=== PATIENT | female | born 1960 | race Caucasian/White ===

== ENCOUNTER 2019-02-25 07:59 | Outpatient (CLI) | payer MEDICAID, SELFPAY ==
--- NOTE | 2019-02-26 08:23 | ONC FU_ITS ---
Dr. Martinez follow up note Patient: Naima Michel Unit #: [id number]: [id number] Dicatated By: Kevyn Martinez M.D.Date of Visit:Feb 25, 2019 Onc Med Follow-up/Prog Note History of Present Illness: Mrs. Michel is a 58-year-old female recently diagnosed with right breast cancer. She underwent right lumpectomy with right axillary lymph node dissection on 11/14/2017 and final pathology report showed 4 cm invasive ductal carcinoma and 3 out of 13 lymph nodes positive for metastatic disease within no extranodal extension identified. As per patient, she has history of left breast biopsy done in 2001 and it was benign. She did not have any follow-up mammograms in the last many years until September 2017. She noticed a mass in her right breast and she got concern. On 09/12/2017 she underwent mammographic which showed at the 10:00 position there was a mass about 3.1 x 2.5 x 4.1 cm, with axillary lymphadenopathy. Mrs Michel then underwent ultrasound-guided biopsy of right breast mass which showed infiltrating adenocarcinoma. She also had right axillary lymph node biopsy also showed infiltrating adenocarcinoma. She subsequently underwent right breast lumpectomy with right axillary lymph node dissection as mentioned above. Oncotype DX score 40 e.g. high risk She denies any history of hormonal supplement. Ms. Michel was evaluated and treatment options were discussed. Given her high Oncotype DX score with tamoxifen alone five-year recurrence risk was 24 presents whereas with chemotherapy and tamoxifen the risk was 15%. He did offer her chemotherapy with Adriamycin Cytoxan every 3 weeks for 4 weeks then followed by weekly Taxol followed by postlumpectomy radiation therapy and then Arimidex for 5 years. Ms. Michel had an echocardiogram on 12/24/2017 which revealed ejection fraction of 57% and no wall motion abnormalities. She underwent venous access device placement with Dr. Arteaga on 01/09/2018. She did have a left subclavian Port-A-Cath placed. She began her first chemotherapy with Adriamycin and cyclophosphamide on 01/15/2018 And completed 4 cycles of chemotherapy with Adriamycin Cytoxan on 03/26/2018 and started on weekly Taxol ???12 on 04/10/2018. Her paclitaxel was changed to protein-bound paclitaxel (Abraxane) at week 4 due to steroid-induced hyperglycemia.Concluded her weekly taxane ???12 on 06/25/2018 Prescription was given on Arimidex 1 mg by mouth daily for 5 years on 07/11/2018 Prescription was called in on 07/11/2018 patient did not strip picker her prescription until seen back on 11/10/2018, at that time another prescription was called in and patient was informed take her adjuvant hormonal therapy with Arimidex daily for 5 years along with vitamin D and calcium supplement Patient came back to clinic on 01/12/2019 and said she could not get her Arimidex again because of insurance refused to cover the prescription. Reason unknown She was given prescription and asked her to get it filled from hospital pharmacy under [facility] program.Which was finally done and patient start taking Arimidex 1 mg by mouth daily on 01/12/2019 for 5 years s/p postlumpectomy radiation therapy Completed on 09/18/2018 Came for follow-up, denies any specific pain no nausea vomiting no fever no chills, could not get her Arimidex prescription filled because of insurance denied coverage, reason unknown. As per patient she has history of trauma to her right leg, in the past she slipped on a toy helicopter and injured her right leg and hip. Came for follow-up, denies any specific complaints, no nausea or vomiting, no fever or chills, no muscle skeleton pain or discomfort, and occasionally hot flashes otherwise tolerating Arimidex well Medications: Albuterol Sulfate 1 puff(s) (of 108 (90 base) mcg/act) Aerosol Powder, Breath Activated Inhalation PRN, Cetirizine HCl 1 Tablet (of 10 mg) Capsule Oral daily, ClonazePAM 1 Tablet (of 0.5 mg) Oral b.i.d., Desvenlafaxine ER 1 Tablet (of 50 mg) Tablet SR 24 HR Oral daily, Gabapentin 1 Tablet (of 600 mg) Oral t.i.d., HumuLIN R 3 - 11 Units (of 100 Units/mL) Injection q 4 hours PRN, Levemir FlexTouch 60 Units Subcutaneous at bedtime, Magnesium 1 Tablet (of 400 mg) Capsule Oral daily, Victoza 0.6 mg Subcutaneous daily Allergies: Tetracycline HCl Review of Systems: Review of Systems is not available for this patient. Vital Signs: Performed on Feb 25, 2019 08:11 Height - 69.00 in Weight - 182.8 lbs (LOW) BSA - 1.99 sq.m BMI - 27.00 Temperature - 97.8 F (LOW) Pulse - 100 /min Respiration - 24 /min BP - 141/75 mm(hg) (HIGH) O2 Sat - 98 % Pain - 0 Performance Status: 0 - Fully active, able to carry on all predisease activities without restrictions. (ECOG) Physical Examination: Respiratory - Lungs are clear to auscultation without rhonchi or wheezing, Cardiovascular - Regular rate and rhythm of heart without murmurs, gallops or rubs, Extremities - No visible deformities, no cyanosis, clubbing or edema. Pulses 4+ and equal bilaterally. Lab/Imaging: Test performed on Dec 08, 2018 10:37 WBC 7.0 10 3/uL RBC 5.00 10 6/uL HGB 14.3 g/dl HCT 41.9 % MCV 83.9 fl MCH 28.6 pg MCHC 34.1 g/dl RDW 14.7 % Platelet Count 354 10 3/cmm MPV 8.7 fl Neutrophils 5.0 10 3/uL Lymphocytes 1.2 10 3/uL Monocytes 0.6 10 3/uL Eosinophils 0.2 10 3/uL Basophils 0.1 10 3/uL Neutrophil % 70.7 % Lymphocyte % 16.9 % Monocyte % 8.2 % Eosinophil % 3.3 % Basophils % 0.9 % Impression: 1. infiltrating adenocarcinoma of right breast status post lumpectomy and right axillary lymph node dissection done on 11/14/2017, final pathology report showed tumor measures 4 cm, T2, 3 out of 13 positive lymph nodes , no extranodal extension N1a p T2, N1a ,Mx pIIB, Ki-67 35%, ER 95%, [place] 2%, both a strongly positive and HER-2/sarwat 2+ but negative by FISH amplification. Oncotype DX score checked on 12/09/2017 showed recurrence score 40 e.g. high risk History of diabetes mellitus Diabetic neuropathy Arthritis Depression/anxiety discussed with Ms Michel her Oncotype type score which was 40 and is high risk for recurrence e.g. and her case 5 years risk of recurrence with tamoxifen alone is 24% whereas with chemotherapy and tamoxifen is 15%. Based on that, recommended that she consider adjuvant chemotherapy followed by hormonal therapy and postlumpectomy radiation therapy: Adriamycin Cytoxan every 3 weeks ???4 followed by weekly Taxol ???12 followed by postlumpectomy radiation therapy and Arimidex for 5 years. Ms. Michel had an echocardiogram on 12/24/2017 which revealed ejection fraction of 57% and no wall motion abnormalities. She underwent venous access device placement with Dr. Arteaga on 01/09/2018. She did have a left subclavian Port-A-Cath placed. She began her first chemotherapy with Adriamycin and cyclophosphamide on 01/15/2018.Computed 4 cycles of chemotherapy with Adriamycin Cytoxan on 2018 , started on weekly Taxol ???12 on 04/10/2018 And concluded on 06/25/2018, started on Arimidex 1 mg by mouth daily for 5 years on 07/11/2018 Prescription for Arimidex was called in on 07/11/2018 but patient did not strip picker her prescription until her return visit on 11/10/2018, when new prescription was called in so her starting date her adjuvant hormonal therapy is 11/10/2018. She has tolerated it well overall with the exception of steroid induce hyperglycemia. We were able to get authorization to change her from Taxol to Abraxane as her glucose was running so high. Status post postlumpectomy radiation therapy, completed on 09/18/2018 Plan: Discussed with patient regarding her concerns and role of adjuvant therapy with hormonal therapy. Finally, patient has started taking Arimidex, now is affordable through [employer] program. And patient is tolerating well with minimal or no side effects e.g. occasionally hot flashes. We'll continue with same along with vitamin D and calcium supplement and then she will return to clinic in 3 months with CBC CMP. And continue with monthly port maintenance Signed By: Kevyn Martinez M.D. <<Signature on File>>
== END 2019-02-25 08:00 | disposition home or self-care (01) ==
LOC: ONCMED 08:00
PROVIDERS: Family Provider Family Medicine; PCP Family Medicine; Visit Provider Internal Medicine Hematology & Oncology
DX: C50.411 Malignant neoplasm of upper-outer quadrant of right female breast (principal); C77.3 Secondary and unspecified malignant neoplasm of axilla and upper limb lymph nodes; Z45.2 Encounter for adjustment and management of vascular access device; E11.42 Type 2 diabetes mellitus with diabetic polyneuropathy; M19.90 Unspecified osteoarthritis, unspecified site; F41.8 Other specified anxiety disorders; Z79.811 Long term (current) use of aromatase inhibitors; Z79.4 Long term (current) use of insulin; Z92.21 Personal history of antineoplastic chemotherapy; Z92.3 Personal history of irradiation
CPT/HCPCS: 96523; 99214

== ENCOUNTER 2019-03-22 20:28 | Emergency (ER) | payer MEDICAID, SELFPAY ==
[2019-03-22 20:55] VITALS: BP 170/92; PULSE 109; RESP 18; TEMP 36.7; O2SAT 98; BMI 26.9
[2019-03-22 22:16] VITALS: BP 171/108; PULSE 109; RESP 16; O2SAT 98
--- NOTE | 2019-03-22 22:17 | PC.NURSE ---
PATIENT STATES SHE WOKE UP YESTERDAY WITH A CRICK IN MY NECK BUT IT HAS NOT DONE AWAY. PATIENT STATES SHE CANNOT MORE HER NECK FROM SIDE TO SIDE OR UP OR DOWN. PATIENT STATES SHE ALSO HAS A HEADACHE. PATIENT IS RATING HER PAIN 9/10.
--- NOTE | 2019-03-22 22:20 | W.ED.NECK ---
HPI - Neck Pain/Injury General: Chief Complaint: Neck Pain/Injury Stated Complaint: neck pain Time Seen by Provider: 03/22/19 22:12 History of Present Illness: HPI Narrative: Patient is a 59-year-old female who awoke yesterday with a crick in her neck . States is right-sided. She denies any fever, amaurosis fugax, unilateral weakness, slurred speech or other difficulties. She denies any fall or injury. She states she had muscle spasms before. History of diabetes, breast cancer status post chemo and radiation therapy. Status post right lumpectomy, bilateral tubal ligation hysterectomy. Allergic to tetracycline. States severe pain with movement to the right side. MD complaint: neck pain Radiation: right lateral Severity: severe Quality: spasming Duration: constant Relieving factors: none Exacerbating factors: movement of neck Associated symptoms: Reports no associated symptoms; Denies headache(s) Review of Systems Const: Denies: fever Eyes: Denies: change in vision ENMT: Denies: dry mouth Card: Denies: edema Resp: Denies: shortness of breath GI: Denies: abdominal pain : Denies: flank pain, difficulty urinating or painful urination Musc: Reports: neck pain; Denies: extremity swelling or redness Skin/Breast: Denies: rash or skin swelling Neuro: Denies: headache or weakness in extremities Psych: Denies: anxiety Endo: Denies: excessive urination Rhett/Lymph: Denies: purpura All/Imm: Denies: hives PFSH ED PFSH: Statuses (acute, chronic, etc) shown below reflect problem list status as previously entered and may not be historically accurate Medical History (Updated 03/22/19 @ 22:25 by Fred Guerrero NP) Agoraphobia with panic disorder (Acute) Major depressive disorder, recurrent, moderate (Acute) Nicotine dependence, cigarettes, with other nicotine-induced disorders (Acute) Social History Smoking and tobacco status: current every day smoker Physical Exam Const: COMMON NORMALS: no apparent distress, oriented x3 and alert ORIENTATION/CONSCIOUSNESS: Yes oriented to person and Yes oriented to place HENMT: COMMON NORMALS: normocephalic HEAD & SCALP: normal to inspection and normocephalic Eye: COMMON NORMALS: PERRL, EOMs intact bilaterally and conjunctivae normal GENERAL EYE: normal appearance of both eyes CONJUNCTIVA: Yes conjunctivae normal PUPIL: Yes PERRL Neck/C-Spine: COMMON NORMALS: no lymphadenopathy, supple, no meningeal signs and no JVD GENERAL: Yes trachea midline and Yes tender (Right paracervical pain with palpation. Spasms noted. No midline cervical pain with exam.) Lymph: LYMPHATIC: no lymphadenopathy noted Chest: COMMONS NORMALS: inspection of chest normal Resp: COMMON NORMALS: normal respiratory effort, no retractions and clear to auscultation bilaterally EFFORT & INSPECTION: Yes able to speak in complete sentences AUSCULTATION: clear to auscultation bilaterally Cardio: COMMON NORMALS: no JVD, regular rate and regular rhythm RATE: regular rate RHYTHM: regular rhythm GI: INSPECTION: Yes normal to inspection AUSCULTATION: Yes normoactive bowel sounds : COMMON NORMALS: Yes no CVA tenderness BLADDER/KIDNEY EXAM: Yes no CVA tenderness Back/Pelvis: COMMON NORMALS: no CVA tenderness THORACIC SPINE/UPPER BACK: Yes normal to inspection LUMBAR SPINE/LOWER BACK: Yes normal to inspection Extremity: COMMON NORMALS: normal to inspection, full ROM and normal capillary refill GENERAL: Yes normal exam except as noted Neuro: COMMON NORMALS: oriented x3, CN's II-XII intact bilaterally, moves all extremities, no focal motor deficits and no sensory deficits noted SENSORIUM/ORIENTATION: Yes alert, Yes oriented to person and Yes oriented to place MENINGEAL SIGNS: Yes no meningeal signs SPEECH: speech normal GAIT: Yes normal gait Psych: COMMON NORMALS: mental status grossly normal, thought process normal, cooperative, affect normal and speech normal APPEARANCE: Yes grossly normal SPEECH: Yes normal speech THOUGHT PROCESS: normal thought process Skin: COMMON NORMALS: no rashes or lesions noted, no wounds and skin turgor normal GENERAL SKIN EXAM: no rashes or lesions noted, elasticity normal and turgor normal Course ED course: Patient with reproducible pain over the right trapezius muscle. Will provide Ativan, Toradol IM along with [place] p.o. Will provide muscle relaxants and NSAIDs for discharge. Patient instructed follow-up with primary care provider for ongoing evaluation. She has no fever. No meningeal signs. Stable for discharge after medical screening exam. Vital Signs: Vital signs: Vital Signs Temperature 98.0 F 03/22/19 20:55 Pulse Rate 109 H 03/22/19 22:16 Respiratory Rate 16 03/22/19 22:16 Blood Pressure 171/108 03/22/19 22:16 Pulse Oximetry 98 03/22/19 22:16 MDM - Neck Pain/Injury MDM Narrative: Medical decision making narrative: Patient has no meningeal signs. Instructed follow-up with primary care provider for ongoing evaluation of muscle skeletal pain. Discharge Plan Discharge Patient Disposition: Home, Self-Care Clinical Impression: Acute cervical myofascial strain Condition: Stable Prescriptions: New cyclobenzaprine 10 mg tablet 10 mg PO TID PRN (Reason: muscle spasm) Qty: 30 RF: 0 naproxen 500 mg tablet 500 mg PO BID PRN (Reason: pain) Qty: 20 RF: 0 No Action desvenlafaxine succinate [Pristiq] 100 mg tablet extended release 24 hr 100 mg PO DAILY Qty: 30 RF: 2 clonazepam [Klonopin] 0.5 mg tablet 0.5 mg PO TID PRN (Reason: anxiety) Qty: 75 RF: 2 Victoza 2-Lakhwinder 0.6 mg/0.1 mL (18 mg/3 mL) pen injector 0.6 mg SUBCUT DAILY RF: 0 Discharge Orders: Discharge Order (Routine); Ordered 03/22/19 Ordered By: Fred Guerrero Referrals: Willie Day MD [Family Provider] - Shelbie Davis MD [Primary Care Provider] - 03/27/19 Discharge Diet: Advance as tolerated Discharge Activity: Limit activity as instructed Patient Instructions: Muscle Spasm (ED) Activity Restrictions/Additional Instructions: Take medication as directed. Follow-up with primary care provider for ongoing evaluation. Coding Level of Care Code ED Director Of Training for Tila Marc
[2019-03-22] MEDS: HYDROcodone-acetaminophen 5-325 mg Tablet 1 TAB PO (22:44)
[2019-03-22] MEDS: ketorolac 30 mg/mL INJ IM (22:44)
[2019-03-22] MEDS: LORazepam 2 mg/mL INJ 1 mL IM (22:44)
[2019-03-22 22:49] VITALS: BP 143/74; PULSE 106; RESP 17; O2SAT 96
[2019-03-22 23:44] VITALS: BP 158/87; PULSE 110; RESP 16; TEMP 37; O2SAT 94
== END 2019-03-22 23:45 | disposition home or self-care (01) ==
PROVIDERS: Emergency Provider Nurse Practitioner; Family Provider Family Medicine; PCP Family Medicine
DX: S16.1XXA Strain of muscle, fascia and tendon at neck level, initial encounter (principal); X58.XXXA Exposure to other specified factors, initial encounter; F17.210 Nicotine dependence, cigarettes, uncomplicated
CPT/HCPCS: 96372; 99281; 99283; J1885; J2060

== ENCOUNTER 2019-03-27 08:02 | Outpatient (CLI) | payer MEDICAID, SELFPAY | END 2019-03-27 08:03 | disposition home or self-care (01) | LOC: ONCMED 08:04 | PROVIDERS: Family Provider Family Medicine; PCP Family Medicine; Visit Provider Internal Medicine Hematology & Oncology | DX: Z45.2 Encounter for adjustment and management of vascular access device (principal) | CPT/HCPCS: 96523 ==

== ENCOUNTER 2019-04-24 07:51 | Outpatient (CLI) | payer MEDICAID, SELFPAY | END 2019-04-24 07:52 | disposition home or self-care (01) | LOC: ONCMED 07:53 | PROVIDERS: Family Provider Family Medicine; PCP Nurse Practitioner Family; Visit Provider Internal Medicine Hematology & Oncology | DX: Z45.2 Encounter for adjustment and management of vascular access device (principal) | CPT/HCPCS: 96523 ==

== ENCOUNTER 2019-05-29 07:48 | Outpatient (CLI) | payer MEDICAID, SELFPAY ==
--- NOTE | 2019-05-29 08:53 | ONC FU_ITS ---
Dr. Martinez follow up note Patient: Naima Michel Unit #: [id number]: 1960 Dicatated By: Kevyn Martinez M.D.Date of Visit:May 29, 2019 Onc Med Follow-up/Prog Note History of Present Illness: Mrs. Michel is a 59-year-old female recently diagnosed with right breast cancer. She underwent right lumpectomy with right axillary lymph node dissection on 11/14/2017 and final pathology report showed 4 cm invasive ductal carcinoma and 3 out of 13 lymph nodes positive for metastatic disease within no extranodal extension identified. As per patient, she has history of left breast biopsy done in 2001 and it was benign. She did not have any follow-up mammograms in the last many years until September 2017. She noticed a mass in her right breast and she got concern. On 09/12/2017 she underwent mammographic which showed at the 10:00 position there was a mass about 3.1 x 2.5 x 4.1 cm, with axillary lymphadenopathy. Mrs Michel then underwent ultrasound-guided biopsy of right breast mass which showed infiltrating adenocarcinoma. She also had right axillary lymph node biopsy also showed infiltrating adenocarcinoma. She subsequently underwent right breast lumpectomy with right axillary lymph node dissection as mentioned above. Oncotype DX score 40 e.g. high risk She denies any history of hormonal supplement. Ms. Michel was evaluated and treatment options were discussed. Given her high Oncotype DX score with tamoxifen alone five-year recurrence risk was 24 presents whereas with chemotherapy and tamoxifen the risk was 15%. He did offer her chemotherapy with Adriamycin Cytoxan every 3 weeks for 4 weeks then followed by weekly Taxol followed by postlumpectomy radiation therapy and then Arimidex for 5 years. Ms. Michel had an echocardiogram on 12/24/2017 which revealed ejection fraction of 57% and no wall motion abnormalities. She underwent venous access device placement with Dr. Arteaga on 01/09/2018. She did have a left subclavian Port-A-Cath placed. She began her first chemotherapy with Adriamycin and cyclophosphamide on 01/15/2018 And completed 4 cycles of chemotherapy with Adriamycin Cytoxan on 03/26/2018 and started on weekly Taxol ???12 on 04/10/2018. Her paclitaxel was changed to protein-bound paclitaxel (Abraxane) at week 4 due to steroid-induced hyperglycemia.Concluded her weekly taxane ???12 on 06/25/2018 Prescription was given on Arimidex 1 mg by mouth daily for 5 years on 07/11/2018 Prescription was called in on 07/11/2018 patient did not pick up driver her prescription until seen back on 11/10/2018, at that time another prescription was called in and patient was informed take her adjuvant hormonal therapy with Arimidex daily for 5 years along with vitamin D and calcium supplement Patient came back to clinic on 01/12/2019 and said she could not get her Arimidex again because of insurance refused to cover the prescription. Reason unknown She was given prescription and asked her to get it filled from hospital pharmacy under [employer] program.Which was finally done and patient start taking Arimidex 1 mg by mouth daily on 01/12/2019 for 5 years s/p postlumpectomy radiation therapy Completed on 09/18/2018 Came for follow-up, denies any specific pain no nausea vomiting no fever no chills, could not get her Arimidex prescription filled because of insurance denied coverage, reason unknown. As per patient she has history of trauma to her right leg, in the past she slipped on a toy helicopter and injured her right leg and hip. Came for follow-up, denies any specific complaints, no nausea vomiting no fever no chills no diarrhea or constipation, no jaundice. Occasional hot flashes otherwise tolerating Arimidex well Medications: Albuterol Sulfate 1 puff(s) (of 108 (90 base) mcg/act) Aerosol Powder, Breath Activated Inhalation PRN, Cetirizine HCl 1 Tablet (of 10 mg) Capsule Oral daily, ClonazePAM 1 Tablet (of 0.5 mg) Oral b.i.d., Desvenlafaxine ER 1 Tablet (of 50 mg) Tablet SR 24 HR Oral daily, Gabapentin 1 Tablet (of 600 mg) Oral t.i.d., HumuLIN R 3 - 11 Units (of 100 Units/mL) Injection q 4 hours PRN, Levemir FlexTouch 60 Units Subcutaneous at bedtime, Magnesium 1 Tablet (of 400 mg) Capsule Oral daily, Victoza 0.6 mg Subcutaneous daily Allergies: Tetracycline HCl Review of Systems: Constitutional - No fevers, chills, night sweats, excessive fatigue or weight loss, ENMT - No sinus congestion/drainage. No cough, Hematologic/Lymphatic - No easy bruising or bleeding, Respiratory - No dyspnea on exertion, chest pain, cough or hemoptysis, Cardiovascular - No anginal chest pain, palpitations, Gastrointestinal - No nausea or vomiting, no diarrhea or constipation. No blood or black stools, Genitourinary (F) - No hematuria, dysuria, increased frequency, urgency, hesitancy or incontinence, Musculoskeletal - No joint pain, swelling or redness. No decreased range of motion, Integumentary - No chronic rashes, inflammation, ulcerations or skin changes, Neurologic - No headache, blurred vision, and no areas of focal weakness or numbness. Normal gait. No sensory problems, Psychiatric - No insomnia, depression, or anxiety. Vital Signs: Performed on May 29, 2019 08:20 Height - 69.00 in Weight - 187.8 lbs (HIGH) BSA - 2.01 sq.m BMI - 27.73 Temperature - 97.2 F (LOW) Pulse - 98 /min Respiration - 17 /min BP - 141/67 mm(hg) (HIGH) O2 Sat - 97 % Pain - 0 Performance Status: 0 - Fully active, able to carry on all predisease activities without restrictions. (ECOG) Physical Examination: Respiratory - Lungs are clear and no wheezing, Cardiovascular - Regular rate and rhythm, Extremities - no visible edema or rash. Lab/Imaging: Test performed on Dec 08, 2018 10:37 WBC 7.0 10 3/uL RBC 5.00 10 6/uL HGB 14.3 g/dl HCT 41.9 % MCV 83.9 fl MCH 28.6 pg MCHC 34.1 g/dl RDW 14.7 % Platelet Count 354 10 3/cmm MPV 8.7 fl Neutrophils 5.0 10 3/uL Lymphocytes 1.2 10 3/uL Monocytes 0.6 10 3/uL Eosinophils 0.2 10 3/uL Basophils 0.1 10 3/uL Neutrophil % 70.7 % Lymphocyte % 16.9 % Monocyte % 8.2 % Eosinophil % 3.3 % Basophils % 0.9 % Impression: 1. infiltrating adenocarcinoma of right breast status post lumpectomy and right axillary lymph node dissection done on 11/14/2017, final pathology report showed tumor measures 4 cm, T2, 3 out of 13 positive lymph nodes , no extranodal extension N1a p T2, N1a ,Mx pIIB, Ki-67 35%, ER 95%, [place] 2%, both a strongly positive and HER-2/sarwat 2+ but negative by FISH amplification. Oncotype DX score checked on 12/09/2017 showed recurrence score 40 e.g. high risk History of diabetes mellitus Diabetic neuropathy Arthritis Depression/anxiety discussed with Ms Michel her Oncotype type score which was 40 and is high risk for recurrence e.g. and her case 5 years risk of recurrence with tamoxifen alone is 24% whereas with chemotherapy and tamoxifen is 15%. Based on that, recommended that she consider adjuvant chemotherapy followed by hormonal therapy and postlumpectomy radiation therapy: Adriamycin Cytoxan every 3 weeks ???4 followed by weekly Taxol ???12 followed by postlumpectomy radiation therapy and Arimidex for 5 years. Ms. Michel had an echocardiogram on 12/24/2017 which revealed ejection fraction of 57% and no wall motion abnormalities. She underwent venous access device placement with Dr. Arteaga on 01/09/2018. She did have a left subclavian Port-A-Cath placed. She began her first chemotherapy with Adriamycin and cyclophosphamide on 01/15/2018.Computed 4 cycles of chemotherapy with Adriamycin Cytoxan on 2018 , started on weekly Taxol ???12 on 04/10/2018 And concluded on 06/25/2018, started on Arimidex 1 mg by mouth daily for 5 years on 07/11/2018 Prescription for Arimidex was called in on 07/11/2018 but patient did not pick up driver her prescription until her return visit on 11/10/2018, when new prescription was called in so her starting date her adjuvant hormonal therapy is 11/10/2018. She has tolerated it well overall with the exception of steroid induce hyperglycemia. We were able to get authorization to change her from Taxol to Abraxane as her glucose was running so high. Status post postlumpectomy radiation therapy, completed on 09/18/2018 Plan: Discussed with patient regarding her questions and concern, patient has no signs symptoms suggestive of recurrence of disease. Tolerating Arimidex well along with vitamin D and calcium supplement. We'll continue with same a prescription was refilled and then she will return to clinic in 3 months with CBC CMP Signed By: Kevyn Martinez M.D. <<Signature on File>>
== END 2019-05-29 07:49 | disposition home or self-care (01) ==
LOC: ONCMED 07:48
PROVIDERS: PCP Nurse Practitioner Family; Visit Provider Internal Medicine Hematology & Oncology
DX: C50.411 Malignant neoplasm of upper-outer quadrant of right female breast (principal); C77.3 Secondary and unspecified malignant neoplasm of axilla and upper limb lymph nodes; Z45.2 Encounter for adjustment and management of vascular access device; E11.42 Type 2 diabetes mellitus with diabetic polyneuropathy; M19.90 Unspecified osteoarthritis, unspecified site; F41.8 Other specified anxiety disorders; Z17.0 Estrogen receptor positive status [ER+]; Z79.811 Long term (current) use of aromatase inhibitors; Z79.899 Other long term (current) drug therapy; Z79.4 Long term (current) use of insulin; Z92.21 Personal history of antineoplastic chemotherapy; Z92.3 Personal history of irradiation
CPT/HCPCS: 96523; 99214

== ENCOUNTER 2019-06-25 14:08 | Outpatient (CLI) | payer MEDICAID, SELFPAY | END 2019-06-25 14:09 | disposition home or self-care (01) | LOC: ONCMED 14:10 | PROVIDERS: PCP Nurse Practitioner Family; Visit Provider Internal Medicine Hematology & Oncology | DX: Z45.2 Encounter for adjustment and management of vascular access device (principal); C50.411 Malignant neoplasm of upper-outer quadrant of right female breast; C77.3 Secondary and unspecified malignant neoplasm of axilla and upper limb lymph nodes | CPT/HCPCS: 96523 ==

== ENCOUNTER 2019-07-23 14:58 | Outpatient (CLI) | payer MEDICAID, SELFPAY | END 2019-07-23 14:59 | disposition home or self-care (01) | PROVIDERS: PCP Nurse Practitioner Family; Visit Provider Nurse Practitioner | DX: Z45.2 Encounter for adjustment and management of vascular access device (principal); C50.411 Malignant neoplasm of upper-outer quadrant of right female breast; C77.3 Secondary and unspecified malignant neoplasm of axilla and upper limb lymph nodes | CPT/HCPCS: 96523 ==

== ENCOUNTER 2019-08-20 12:52 | Outpatient (CLI) | payer MEDICAID, SELFPAY ==
[2019-08-20] MEDS: alteplase 1 mg/mL SDV 2 mL 2 MG IV ×2 (13:20→14:20)
[2019-08-20 13:37] LABS: Basophils % 0.5 %; Eosinophils # 0.1 10^3/uL (0.0-0.8); Eosinophils % 1.9 %; Hematocrit 42.5 % (37.0-47.0); Hemoglobin 14.1 g/dL (11.5-15.3); Lymphocytes # 1.2 10^3/uL (0.8-4.8); Lymphocytes % 16.3 %; Mean Corpuscular HGB Conc 33.2 g/dL (30.0-36.0); Mean Corpuscular Volume 87.4 fL (81-99); Mean Platelet Volume 10.4 fL (7.4-10.4); Monocytes # 0.4 10^3/uL (0.2-0.9); Monocytes % 5.8 %; Neutrophils # 5.59 10^3/uL (1.8-7.7); Neutrophils % 75.2 %; Nucleated Red Blood Cells % 0 %; Platelet Count 362 10^3/cmm (130-400); Red Blood Count 4.86 10^6/uL (4.1-5.3); Red Cell Distribution Width 12.9 % (12.1-15.1); White Blood Count 7.4 10^3/uL (4.0-10.0)
[2019-08-20 14:33] LABS: Alanine Aminotransferase 9 U/L (0-33); Alkaline Phosphatase 126 IU/L (35-105); Anion Gap 15.7 (5-19); Aspartate Amino Transferase 12 U/L (0-32); Blood Urea Nitrogen 9 mg/dL (6-20); Calcium 9.3 mg/dL (8.5-10.5); Carbon Dioxide 23 mmol/L (22-29); Chloride 98 mmol/L (98-107); Globulin 3.4 g/dL (1.3-4.6); Glomerular Filtration Rate 102.3 mL/min (90-130); Glucose 339 mg/dL (65-115); Osmolality Calculated 283 mOsm/kg (285-295); Potassium 4.7 mmol/L (3.5-5.1); Sodium 132 mmol/L (136-145); Total Bilirubin 0.4 mg/dL (0.15-1.2); Total Protein 7.4 g/dL (6.6-8.7)
--- NOTE | 2019-08-20 14:52 | ONC FU_ITS ---
Dr. Martinez follow up note Patient: Naima Michel Unit #: [id number]: [id number] Dicatated By: Kevyn Martinez M.D.Date of Visit:Aug 20, 2019 Onc Med Follow-up/Prog Note History of Present Illness: Mrs. Michel is a 59-year-old female recently diagnosed with right breast cancer. She underwent right lumpectomy with right axillary lymph node dissection on 11/14/2017 and final pathology report showed 4 cm invasive ductal carcinoma and 3 out of 13 lymph nodes positive for metastatic disease within no extranodal extension identified. As per patient, she has history of left breast biopsy done in 2001 and it was benign. She did not have any follow-up mammograms in the last many years until September 2017. She noticed a mass in her right breast and she got concern. On 09/12/2017 she underwent mammographic which showed at the 10:00 position there was a mass about 3.1 x 2.5 x 4.1 cm, with axillary lymphadenopathy. Mrs Michel then underwent ultrasound-guided biopsy of right breast mass which showed infiltrating adenocarcinoma. She also had right axillary lymph node biopsy also showed infiltrating adenocarcinoma. She subsequently underwent right breast lumpectomy with right axillary lymph node dissection as mentioned above. Oncotype DX score 40 e.g. high risk She denies any history of hormonal supplement. Ms. Michel was evaluated and treatment options were discussed. Given her high Oncotype DX score with tamoxifen alone five-year recurrence risk was 24 presents whereas with chemotherapy and tamoxifen the risk was 15%. He did offer her chemotherapy with Adriamycin Cytoxan every 3 weeks for 4 weeks then followed by weekly Taxol followed by postlumpectomy radiation therapy and then Arimidex for 5 years. Ms. Michel had an echocardiogram on 12/24/2017 which revealed ejection fraction of 57% and no wall motion abnormalities. She underwent venous access device placement with Dr. Arteaga on 01/09/2018. She did have a left subclavian Port-A-Cath placed. She began her first chemotherapy with Adriamycin and cyclophosphamide on 01/15/2018 And completed 4 cycles of chemotherapy with Adriamycin Cytoxan on 03/26/2018 and started on weekly Taxol ???12 on 04/10/2018. Her paclitaxel was changed to protein-bound paclitaxel (Abraxane) at week 4 due to steroid-induced hyperglycemia.Concluded her weekly taxane ???12 on 06/25/2018 Prescription was given on Arimidex 1 mg by mouth daily for 5 years on 07/11/2018 Prescription was called in on 07/11/2018 patient did not bulk picker her prescription until seen back on 11/10/2018, at that time another prescription was called in and patient was informed take her adjuvant hormonal therapy with Arimidex daily for 5 years along with vitamin D and calcium supplement Patient came back to clinic on 01/12/2019 and said she could not get her Arimidex again because of insurance refused to cover the prescription. Reason unknown She was given prescription and asked her to get it filled from hospital pharmacy under 340B program.Which was finally done and patient start taking Arimidex 1 mg by mouth daily on 01/12/2019 for 5 years s/p postlumpectomy radiation therapy Completed on 09/18/2018 Came for follow-up, denies any specific pain no nausea vomiting no fever no chills, could not get her Arimidex prescription filled because of insurance denied coverage, reason unknown. As per patient she has history of trauma to her right leg, in the past she slipped on a toy helicopter and injured her right leg and hip. Came for follow-up, denies any specific complaints, no fever chills, no nausea or vomiting, no diarrhea or constipation, no new bony pains, tolerating Arimidex/vitamin D/calcium well Medications: Albuterol Sulfate 1 puff(s) (of 108 (90 base) mcg/act) Aerosol Powder, Breath Activated Inhalation PRN, Cetirizine HCl 1 Tablet (of 10 mg) Capsule Oral daily, ClonazePAM 1 Tablet (of 0.5 mg) Oral b.i.d., Desvenlafaxine ER 1 Tablet (of 50 mg) Tablet SR 24 HR Oral daily, Gabapentin 1 Tablet (of 600 mg) Oral t.i.d., HumuLIN R 3 - 11 Units (of 100 Units/mL) Injection q 4 hours PRN, Levemir FlexTouch 60 Units Subcutaneous at bedtime, Magnesium 1 Tablet (of 400 mg) Capsule Oral daily, Victoza 0.6 mg Subcutaneous daily Allergies: Tetracycline HCl Review of Systems: Constitutional - No fevers, chills, night sweats, excessive fatigue or weight loss, ENMT - No sinus congestion/drainage. No cough, Hematologic/Lymphatic - No easy bruising or bleeding, Respiratory - No dyspnea on exertion, chest pain, cough or hemoptysis, Cardiovascular - No anginal chest pain, palpitations, Gastrointestinal - No nausea or vomiting, no diarrhea or constipation. No blood or black stools, Genitourinary (F) - No hematuria, dysuria, increased frequency, urgency, hesitancy or incontinence, Musculoskeletal - No joint pain, swelling or redness. No decreased range of motion, Integumentary - No chronic rashes, inflammation, ulcerations or skin changes, Neurologic - No headache, blurred vision, and no areas of focal weakness or numbness. Normal gait. No sensory problems, Psychiatric - No insomnia, depression, or anxiety. Vital Signs: Performed on Aug 20, 2019 14:38 Height - 69.00 in Weight - 188.6 lbs (HIGH) BSA - 2.01 sq.m BMI - 27.85 Temperature - 98.3 F (LOW) Pulse - 95 /min Respiration - 20 /min BP - 125/69 mm(hg) O2 Sat - 98 % Pain - 0 Performance Status: 0 - Fully active, able to carry on all predisease activities without restrictions. (ECOG) Physical Examination: Respiratory - Lungs are clear, Cardiovascular - Regular rate and rhythm of heart, Gastrointestinal - Soft, bowel sounds present, Extremities - No visible edema. Lab/Imaging: Most recent lab results are not available for this patient. Impression: 1. infiltrating adenocarcinoma of right breast status post lumpectomy and right axillary lymph node dissection done on 11/14/2017, final pathology report showed tumor measures 4 cm, T2, 3 out of 13 positive lymph nodes , no extranodal extension N1a p T2, N1a ,Mx pIIB, Ki-67 35%, ER 95%, [place] 2%, both a strongly positive and HER-2/sarwat 2+ but negative by FISH amplification. Oncotype DX score checked on 12/09/2017 showed recurrence score 40 e.g. high risk History of diabetes mellitus Diabetic neuropathy Arthritis Depression/anxiety discussed with Ms Michel her Oncotype type score which was 40 and is high risk for recurrence e.g. and her case 5 years risk of recurrence with tamoxifen alone is 24% whereas with chemotherapy and tamoxifen is 15%. Based on that, recommended that she consider adjuvant chemotherapy followed by hormonal therapy and postlumpectomy radiation therapy: Adriamycin Cytoxan every 3 weeks ???4 followed by weekly Taxol ???12 followed by postlumpectomy radiation therapy and Arimidex for 5 years. Ms. Michel had an echocardiogram on 12/24/2017 which revealed ejection fraction of 57% and no wall motion abnormalities. She underwent venous access device placement with Dr. Arteaga on 01/09/2018. She did have a left subclavian Port-A-Cath placed. She began her first chemotherapy with Adriamycin and cyclophosphamide on 01/15/2018.Computed 4 cycles of chemotherapy with Adriamycin Cytoxan on 2018 , started on weekly Taxol ???12 on 04/10/2018 And concluded on 06/25/2018, started on Arimidex 1 mg by mouth daily for 5 years on 07/11/2018 Prescription for Arimidex was called in on 07/11/2018 but patient did not bulk picker her prescription until her return visit on 11/10/2018, when new prescription was called in so her starting date her adjuvant hormonal therapy is 11/10/2018. She has tolerated it well overall with the exception of steroid induce hyperglycemia. We were able to get authorization to change her from Taxol to Abraxane as her glucose was running so high. Status post postlumpectomy radiation therapy, completed on 09/18/2018 Plan: Discussed with patient regarding her labs white blood count 7.4 hemoglobin 14.1 crit 42.5 platelets 362,000 CMP within normal limit except glucose 339,000 Clinically, patient is doing well with no signs symptom suggestive of recurrence of disease, tolerating Arimidex/vitamin D and calcium well but with expected side effects. We will continue with same. As far as hyperglycemia is concerned, patient said her primary care physician is monitoring and adjusting her medications. Patient was advised to watch her diet and follow PMDs instructions properly. Return to clinic in 4 months with CBC CMP and follow-up mammogram in the meantime continue with monthly port maintenance Signed By: Kevyn Martinez M.D. <<Signature on File>>
== END 2019-08-20 12:53 | disposition home or self-care (01) ==
LOC: ONCMED 12:55
PROVIDERS: PCP Nurse Practitioner Family; Visit Provider Internal Medicine Hematology & Oncology
DX: C50.411 Malignant neoplasm of upper-outer quadrant of right female breast (principal); C77.3 Secondary and unspecified malignant neoplasm of axilla and upper limb lymph nodes; E11.65 Type 2 diabetes mellitus with hyperglycemia; Z17.0 Estrogen receptor positive status [ER+]; E11.42 Type 2 diabetes mellitus with diabetic polyneuropathy; F41.8 Other specified anxiety disorders; T82.594A Other mechanical complication of infusion catheter, initial encounter; Y74.1 Therapeutic (nonsurgical) and rehabilitative general hospital and personal-use devices associated with adverse incidents; M19.90 Unspecified osteoarthritis, unspecified site; Z79.811 Long term (current) use of aromatase inhibitors; Z92.3 Personal history of irradiation; Z79.4 Long term (current) use of insulin; Z92.21 Personal history of antineoplastic chemotherapy; Z98.890 Other specified postprocedural states
CPT/HCPCS: 36415; 36593; 80053; 85025; 96374; 96376; 99214; J2997

== ENCOUNTER 2019-09-18 07:30 | Outpatient (CLI) | payer MEDICAID, SELFPAY | END 2019-09-18 07:31 | disposition home or self-care (01) | LOC: ONCMED 07:31 | PROVIDERS: PCP Nurse Practitioner Family; Visit Provider Internal Medicine Hematology & Oncology | DX: Z45.2 Encounter for adjustment and management of vascular access device (principal) | CPT/HCPCS: 96523 ==

== ENCOUNTER 2019-10-21 07:54 | Outpatient (CLI) | payer MEDICAID, SELFPAY | END 2019-10-21 07:55 | disposition home or self-care (01) | LOC: ONCMED 07:56 | PROVIDERS: PCP Nurse Practitioner Family; Visit Provider Internal Medicine Hematology & Oncology | DX: Z45.2 Encounter for adjustment and management of vascular access device (principal) | CPT/HCPCS: 96523 ==

== ENCOUNTER 2019-11-20 07:52 | Outpatient (CLI) | payer MEDICAID, SELFPAY | END 2019-11-20 07:53 | disposition home or self-care (01) | LOC: ONCMED 07:53 | PROVIDERS: PCP Nurse Practitioner Family; Visit Provider Internal Medicine Hematology & Oncology | DX: Z45.2 Encounter for adjustment and management of vascular access device (principal) | CPT/HCPCS: 96523 ==

== ENCOUNTER 2019-12-21 10:04 | Outpatient (CLI) | payer MEDICAID, SELFPAY ==
--- NOTE | 2019-12-21 10:10 | MM_ITS ---
WS: [id number] Bilateral diagnostic digital mammogram, 12/21/2019 Clinical Data: HX OF BREAST CA Comparison: 09/12/2017. Findings: Right breast is smaller with upper outer quadrant scarring as a result of therapy. The right breast s kin is thickened. The left breast shows fibroglandular tissue. No spiculated masses or clustered calc ifications are seen on the left. MM/[id number] Impression: 1. Post therapy changes of the right breast but no evidence of recurrent tumor. 2. Negative left breast. 3. Recommend annual mammograms. BIRADS: 2-Benign FOLLOW UP: 1 Year Follow-up The [employer] dump grounds checker was used.
== END 2019-12-21 10:05 | disposition home or self-care (01) ==
LOC: ONCMED 10:07
PROVIDERS: PCP Nurse Practitioner Family; Visit Provider Internal Medicine Hematology & Oncology
DX: Z85.3 Personal history of malignant neoplasm of breast (principal)
CPT/HCPCS: 77066

== ENCOUNTER 2019-12-25 05:47 | Outpatient (CLI) | payer MEDICAID, SELFPAY ==
[2019-12-25 08:42] LABS: Basophils # 0.1 10^3/uL (0.0-0.1); Basophils % 0.7 %; Eosinophils # 0.2 10^3/uL (0.0-0.8); Eosinophils % 2.6 %; Hematocrit 44.3 % (37.0-47.0); Hemoglobin 14.4 g/dL (11.5-15.3); Lymphocytes # 1.6 10^3/uL (0.8-4.8); Lymphocytes % 19.8 %; Mean Corpuscular HGB Conc 32.5 g/dL (30.0-36.0); Mean Corpuscular Hemoglobin 29.3 pg (28.0-34.0); Mean Platelet Volume 10.6 fL (7.4-10.4); Monocytes # 0.6 10^3/uL (0.2-0.9); Monocytes % 7.5 %; Neutrophils # 5.53 10^3/uL (1.8-7.7); Nucleated Red Blood Cells % 0 %; Platelet Count 381 10^3/cmm (130-400); Red Blood Count 4.92 10^6/uL (4.1-5.3); Red Cell Distribution Width 12.2 % (12.1-15.1)
[2019-12-25 09:03] LABS: Alanine Aminotransferase 9 U/L (0-33); Albumin Level 3.9 g/dL (3.5-5.2); Alkaline Phosphatase 145 IU/L (35-105); Anion Gap 14.6 (5-19); Aspartate Amino Transferase 10 U/L (0-32); Blood Urea Nitrogen 15 mg/dL (6-20); Calcium 9.4 mg/dL (8.5-10.5); Carbon Dioxide 26 mmol/L (22-29); Chloride 97 mmol/L (98-107); Globulin 3.3 g/dL (1.3-4.6); Glomerular Filtration Rate 126.3 mL/min (90-130); Glucose 383 mg/dL (65-115); Osmolality Calculated 293 mOsm/kg (285-295); Potassium 4.6 mmol/L (3.5-5.1); Sodium 133 mmol/L (136-145); Total Bilirubin 0.2 mg/dL (0.15-1.2); Total Protein 7.2 g/dL (6.6-8.7)
--- NOTE | 2019-12-25 10:06 | ONC FU_ITS ---
Dr. Martinez follow up note Patient: Naima Michel Unit #: [id number]: 1960 Dicatated By: Kevyn Martinez M.D.Date of Visit:Dec 25, 2019 Onc Med Follow-up/Prog Note History of Present Illness: Mrs. Michel is a 59-year-old female recently diagnosed with right breast cancer. She underwent right lumpectomy with right axillary lymph node dissection on 11/14/2017 and final pathology report showed 4 cm invasive ductal carcinoma and 3 out of 13 lymph nodes positive for metastatic disease within no extranodal extension identified. As per patient, she has history of left breast biopsy done in 2001 and it was benign. She did not have any follow-up mammograms in the last many years until September 2017. She noticed a mass in her right breast and she got concern. On 09/12/2017 she underwent mammographic which showed at the 10:00 position there was a mass about 3.1 x 2.5 x 4.1 cm, with axillary lymphadenopathy. Mrs Michel then underwent ultrasound-guided biopsy of right breast mass which showed infiltrating adenocarcinoma. She also had right axillary lymph node biopsy also showed infiltrating adenocarcinoma. She subsequently underwent right breast lumpectomy with right axillary lymph node dissection as mentioned above. Oncotype DX score 40 e.g. high risk She denies any history of hormonal supplement. Ms. Michel was evaluated and treatment options were discussed. Given her high Oncotype DX score with tamoxifen alone five-year recurrence risk was 24 presents whereas with chemotherapy and tamoxifen the risk was 15%. He did offer her chemotherapy with Adriamycin Cytoxan every 3 weeks for 4 weeks then followed by weekly Taxol followed by postlumpectomy radiation therapy and then Arimidex for 5 years. Ms. Michel had an echocardiogram on 12/24/2017 which revealed ejection fraction of 57% and no wall motion abnormalities. She underwent venous access device placement with Dr. Arteaga on 01/09/2018. She did have a left subclavian Port-A-Cath placed. She began her first chemotherapy with Adriamycin and cyclophosphamide on 01/15/2018 And completed 4 cycles of chemotherapy with Adriamycin Cytoxan on 03/26/2018 and started on weekly Taxol ???12 on 04/10/2018. Her paclitaxel was changed to protein-bound paclitaxel (Abraxane) at week 4 due to steroid-induced hyperglycemia.Concluded her weekly taxane ???12 on 06/25/2018 Prescription was given on Arimidex 1 mg by mouth daily for 5 years on 07/11/2018 Prescription was called in on 07/11/2018 patient did not pickers material handlers her prescription until seen back on 11/10/2018, at that time another prescription was called in and patient was informed take her adjuvant hormonal therapy with Arimidex daily for 5 years along with vitamin D and calcium supplement Patient came back to clinic on 01/12/2019 and said she could not get her Arimidex again because of insurance refused to cover the prescription. Reason unknown She was given prescription and asked her to get it filled from hospital pharmacy under [facility]B program.Which was finally done and patient start taking Arimidex 1 mg by mouth daily on 01/12/2019 for 5 years s/p postlumpectomy radiation therapy Completed on 09/18/2018 . tolerating Arimidex/vitamin D/calcium well Follow-up mammogram done on December 21, 2019 showed post therapy changes in the right breast but no evidence of recurrent tumor, negative left breast Came for follow-up, denies any specific complaints, no fever chills, no nausea or vomiting, no diarrhea constipation, occasional hot flashes, trying to quit smoking as per patient she smoked about 2 and half cigarettes in the last 2 weeks. Otherwise tolerating Arimidex/vitamin D/calcium well Medications: Albuterol Sulfate 1 puff(s) (of 108 (90 base) mcg/act) Aerosol Powder, Breath Activated Inhalation PRN, Cetirizine HCl 1 Tablet (of 10 mg) Capsule Oral daily, ClonazePAM 1 Tablet (of 0.5 mg) Oral b.i.d., Desvenlafaxine ER 1 Tablet (of 50 mg) Tablet SR 24 HR Oral daily, Gabapentin 1 Tablet (of 600 mg) Oral t.i.d., HumuLIN R 3 - 11 Units (of 100 Units/mL) Injection q 4 hours PRN, Levemir FlexTouch 60 Units Subcutaneous at bedtime, Magnesium 1 Tablet (of 400 mg) Capsule Oral daily, Victoza 0.6 mg Subcutaneous daily Allergies: Tetracycline HCl Review of Systems: Constitutional - No fevers, chills, night sweats, excessive fatigue or weight loss, ENMT - No sinus congestion/drainage. No cough, Hematologic/Lymphatic - No easy bruising or bleeding, Respiratory - No dyspnea on exertion, chest pain, cough or hemoptysis, Cardiovascular - No anginal chest pain, palpitations, Gastrointestinal - No nausea or vomiting, no diarrhea or constipation. No blood or black stools, Genitourinary (F) - No hematuria, dysuria, increased frequency, urgency, hesitancy or incontinence, Musculoskeletal - No joint pain, swelling or redness. No decreased range of motion, Integumentary - No chronic rashes, inflammation, ulcerations or skin changes, Neurologic - No headache, blurred vision, and no areas of focal weakness or numbness. Normal gait. No sensory problems, Psychiatric - No insomnia, depression, or anxiety. Vital Signs: Performed on Dec 25, 2019 09:38 Height - 69.00 in Weight - 189.8 lbs (HIGH) BSA - 2.02 sq.m BMI - 28.03 Temperature - 97.1 F (LOW) Pulse - 102 /min (HIGH) Respiration - 20 /min BP - 146/83 mm(hg) (HIGH) O2 Sat - 97 % Pain - 0 Performance Status: 0 - Fully active, able to carry on all predisease activities without restrictions. (ECOG) Physical Examination: Respiratory - Lungs are clear to auscultation , Cardiovascular - Regular rate and rhythm of heart, Gastrointestinal - Soft, bowel sounds present, Extremities - No visible edema. Lab/Imaging: Test performed on Aug 20, 2019 13:10 Sodium 132 mmol/L Potassium 4.7 mmol/L Chloride 98 mmol/L CO2 23 mmol/L Anion Gap 15.7 BUN 9 mg/dL Creatinine 0.6 mg/dL Cr Clearance (Est) 140.9700 mL/min eGFR 102.3 mL/min Glucose 339 mg/dL Calcium 9.3 mg/dL Protein, Total 7.4 g/dL Albumin 4.0 g/dL Globulin 3.4 g/dL Bilirubin, Total 0.4 mg/dL ALT (SGPT) 9 U/L AST (SGOT) 12 U/L Alkaline Phosphatase 126 IU/L WBC 7.4 10 3/uL RBC 4.86 10 6/uL HGB 14.1 g/dL HCT 42.5 % MCV 87.4 fL MCH 29.0 pg MCHC 33.2 g/dL RDW 12.9 % Platelet Count 362 10 3/cmm MPV 10.4 fL Neutrophils 5.59 10 3/uL Lymphocytes 1.2 10 3/uL Monocytes 0.4 10 3/uL Eosinophils 0.1 10 3/uL Basophils 0.0 10 3/uL Neutrophil % 75.2 % Lymphocyte % 16.3 % Monocyte % 5.8 % Eosinophil % 1.9 % Basophils % 0.5 % NRBC % 0 % Impression: 1. infiltrating adenocarcinoma of right breast status post lumpectomy and right axillary lymph node dissection done on 11/14/2017, final pathology report showed tumor measures 4 cm, T2, 3 out of 13 positive lymph nodes , no extranodal extension N1a p T2, N1a ,Mx pIIB, Ki-67 35%, ER 95%, [place] 2%, both a strongly positive and HER-2/sarwat 2+ but negative by FISH amplification. Oncotype DX score checked on 12/09/2017 showed recurrence score 40 e.g. high risk History of diabetes mellitus Diabetic neuropathy Arthritis Depression/anxiety discussed with Ms Michel her Oncotype type score which was 40 and is high risk for recurrence e.g. and her case 5 years risk of recurrence with tamoxifen alone is 24% whereas with chemotherapy and tamoxifen is 15%. Based on that, recommended that she consider adjuvant chemotherapy followed by hormonal therapy and postlumpectomy radiation therapy: Adriamycin Cytoxan every 3 weeks ???4 followed by weekly Taxol ???12 followed by postlumpectomy radiation therapy and Arimidex for 5 years. Ms. Michel had an echocardiogram on 12/24/2017 which revealed ejection fraction of 57% and no wall motion abnormalities. She underwent venous access device placement with Dr. Arteaga on 01/09/2018. She did have a left subclavian Port-A-Cath placed. She began her first chemotherapy with Adriamycin and cyclophosphamide on 01/15/2018.Computed 4 cycles of chemotherapy with Adriamycin Cytoxan on 2018 , started on weekly Taxol ???12 on 04/10/2018 And concluded on 06/25/2018, started on Arimidex 1 mg by mouth daily for 5 years on 07/11/2018 Prescription for Arimidex was called in on 07/11/2018 but patient did not pickers material handlers her prescription until her return visit on 11/10/2018, when new prescription was called in so her starting date her adjuvant hormonal therapy is 11/10/2018. She has tolerated it well overall with the exception of steroid induce hyperglycemia. We were able to get authorization to change her from Taxol to Abraxane as her glucose was running so high. Status post postlumpectomy radiation therapy, completed on 09/18/2018 Plan: Discussed with patient regarding her labs white blood count 8 hemoglobin 14.4 hematocrit 44.3 platelets 381,000 CMP within normal limit except glucose 383 And alk phos 145 compared to 126 Clinically, patient is doing well with no new signs symptoms, tolerating Arimidex/vitamin D/calcium well but with expected side effect e.g. occasionally hot flashes. Her follow-up mammogram done recently showed no abnormality so we will repeat her mammogram in 1 year as recommended Mildly elevated alk phos etiology unclear patient has no new bone pain or symptom we will continue to monitor if continue to go up we will consider bone scan. Patient was also advised to monitor her diet and blood sugar patient said her PMD is considering making some changes in her medication Continue monthly port flush maintenance and return to clinic in 4 months with CBC CMP and if lab work-up is in normal range especially alk phos then will consider port removal Patient was advised to quit smoking was offered any assistance she may need Signed By: Kevyn Martinez M.D. <<Signature on File>>
== END 2019-12-25 05:48 | disposition home or self-care (01) ==
LOC: ONCMED 05:47
PROVIDERS: PCP Nurse Practitioner Family; Visit Provider Internal Medicine Hematology & Oncology
DX: C50.411 Malignant neoplasm of upper-outer quadrant of right female breast (principal); Z17.0 Estrogen receptor positive status [ER+]; C77.3 Secondary and unspecified malignant neoplasm of axilla and upper limb lymph nodes; E11.42 Type 2 diabetes mellitus with diabetic polyneuropathy; F32.9 Major depressive disorder, single episode, unspecified; F41.9 Anxiety disorder, unspecified; Z79.818 Long term (current) use of other agents affecting estrogen receptors and estrogen levels; Z45.2 Encounter for adjustment and management of vascular access device; Z79.899 Other long term (current) drug therapy
CPT/HCPCS: 36415; 80053; 85025; 96523; 99214

== ENCOUNTER 2020-05-10 08:20 | Outpatient (CLI) | payer MEDICAID, SELFPAY ==
[2020-05-10 09:08] LABS: Basophils % 0.4 %; Eosinophils # 0.2 10^3/uL (0.0-0.8); Eosinophils % 1.9 %; Hematocrit 43.9 % (37.0-47.0); Lymphocytes # 1.6 10^3/uL (0.8-4.8); Lymphocytes % 17.4 %; Mean Corpuscular HGB Conc 31.9 g/dL (30.0-36.0); Mean Corpuscular Hemoglobin 28.5 pg (28.0-34.0); Mean Corpuscular Volume 89.4 fL (81-99); Mean Platelet Volume 10.6 fL (7.4-10.4); Monocytes # 0.6 10^3/uL (0.2-0.9); Monocytes % 6.6 %; Neutrophils % 73.5 %; Nucleated Red Blood Cells % 0 %; Platelet Count 359 10^3/cmm (130-400); Red Blood Count 4.91 10^6/uL (4.1-5.3); Red Cell Distribution Width 12.2 % (12.1-15.1)
[2020-05-10 09:25] LABS: Alanine Aminotransferase 7 U/L (0-33); Albumin Level 3.9 g/dL (3.5-5.2); Alkaline Phosphatase 131 IU/L (35-105); Anion Gap 14.6 (5-19); Aspartate Amino Transferase 6 U/L (0-32); Blood Urea Nitrogen 20 mg/dL (8-23); Calcium 8.9 mg/dL (8.5-10.5); Carbon Dioxide 24 mmol/L (22-29); Chloride 99 mmol/L (98-107); Globulin 3.3 g/dL (1.3-4.6); Glomerular Filtration Rate 85.4 mL/min (90-130); Glucose 365 mg/dL (65-115); Osmolality Calculated 293 mOsm/kg (285-295); Potassium 4.6 mmol/L (3.5-5.1); Sodium 133 mmol/L (136-145); Total Bilirubin 0.2 mg/dL (0.15-1.2); Total Protein 7.2 g/dL (6.6-8.7)
--- NOTE | 2020-05-10 13:02 | ONC FU_ITS ---
Dr. Martinez follow up note Patient: Naima Michel Unit #: [id number]: [id number] Dicatated By: Kevyn Martinez M.D.Date of Visit:May 10, 2020 Onc Med Follow-up/Prog Note History of Present Illness: Mrs. Michel is a 60-year-old female recently diagnosed with right breast cancer. She underwent right lumpectomy with right axillary lymph node dissection on 11/14/2017 and final pathology report showed 4 cm invasive ductal carcinoma and 3 out of 13 lymph nodes positive for metastatic disease within no extranodal extension identified. As per patient, she has history of left breast biopsy done in 2001 and it was benign. She did not have any follow-up mammograms in the last many years until September 2017. She noticed a mass in her right breast and she got concern. On 09/12/2017 she underwent mammographic which showed at the 10:00 position there was a mass about 3.1 x 2.5 x 4.1 cm, with axillary lymphadenopathy. Mrs Michel then underwent ultrasound-guided biopsy of right breast mass which showed infiltrating adenocarcinoma. She also had right axillary lymph node biopsy also showed infiltrating adenocarcinoma. She subsequently underwent right breast lumpectomy with right axillary lymph node dissection as mentioned above. Oncotype DX score 40 e.g. high risk She denies any history of hormonal supplement. Ms. Michel was evaluated and treatment options were discussed. Given her high Oncotype DX score with tamoxifen alone five-year recurrence risk was 24 presents whereas with chemotherapy and tamoxifen the risk was 15%. He did offer her chemotherapy with Adriamycin Cytoxan every 3 weeks for 4 weeks then followed by weekly Taxol followed by postlumpectomy radiation therapy and then Arimidex for 5 years. Ms. Michel had an echocardiogram on 12/24/2017 which revealed ejection fraction of 57% and no wall motion abnormalities. She underwent venous access device placement with Dr. Arteaga on 01/09/2018. She did have a left subclavian Port-A-Cath placed. She began her first chemotherapy with Adriamycin and cyclophosphamide on 01/15/2018 And completed 4 cycles of chemotherapy with Adriamycin Cytoxan on 03/26/2018 and started on weekly Taxol ???12 on 04/10/2018. Her paclitaxel was changed to protein-bound paclitaxel (Abraxane) at week 4 due to steroid-induced hyperglycemia.Concluded her weekly taxane ???12 on 06/25/2018 Prescription was given on Arimidex 1 mg by mouth daily for 5 years on 07/11/2018 Prescription was called in on 07/11/2018 patient did not hop picker her prescription until seen back on 11/10/2018, at that time another prescription was called in and patient was informed take her adjuvant hormonal therapy with Arimidex daily for 5 years along with vitamin D and calcium supplement Patient came back to clinic on 01/12/2019 and said she could not get her Arimidex again because of insurance refused to cover the prescription. Reason unknown She was given prescription and asked her to get it filled from hospital pharmacy under 340B program.Which was finally done and patient start taking Arimidex 1 mg by mouth daily on 01/12/2019 for 5 years s/p postlumpectomy radiation therapy Completed on 09/18/2018 . tolerating Arimidex/vitamin D/calcium well Follow-up mammogram done on December 21, 2019 showed post therapy changes in the right breast but no evidence of recurrent tumor, negative left breast Came for follow-up, denies any specific complaint except some discomfort in the right shoulder and axillary area, as per patient, over the weekend she overdid [place], [place] and did some heavy lifting but denies any trauma to the right shoulder or arm no right arm swelling no right shoulder swelling or local tenderness. Otherwise no fever chills, no nausea or vomiting, no diarrhea constipation, no headaches. Tolerating Arimidex/vitamin D/calcium well otherwise. Medications: Albuterol Sulfate 1 puff(s) (of 108 (90 base) mcg/act) Aerosol Powder, Breath Activated Inhalation PRN, Cetirizine HCl 1 Tablet (of 10 mg) Capsule Oral daily, ClonazePAM 1 Tablet (of 0.5 mg) Oral b.i.d., Desvenlafaxine ER 1 Tablet (of 50 mg) Tablet SR 24 HR Oral daily, Gabapentin 1 Tablet (of 600 mg) Oral t.i.d., HumuLIN R 3 - 11 Units (of 100 Units/mL) Injection q 4 hours PRN, Levemir FlexTouch 60 Units Subcutaneous at bedtime, Magnesium 1 Tablet (of 400 mg) Capsule Oral daily, Victoza 0.6 mg Subcutaneous daily Allergies: Tetracycline HCl Review of Systems: Review of Systems is not available for this patient. Vital Signs: Performed on May 10, 2020 10:35 Height - 69.00 in Weight - 192 lbs (HIGH) BSA - 2.03 sq.m BMI - 28.35 Temperature - 97.9 F (LOW) Pulse - 101 /min (HIGH) Respiration - 18 /min BP - 156/84 mm(hg) (HIGH) O2 Sat - 96 % Pain - 8 Fatigue - 7 Performance Status: 0 - Fully active, able to carry on all predisease activities without restrictions. (ECOG) Physical Examination: Respiratory - Lungs are clear to auscultation, Cardiovascular - Regular rate and rhythm of heart, Gastrointestinal - Soft, bowel sounds present, Extremities - No visible edema or rash no right shoulder swelling or tenderness no right axillary fullness or tenderness. Lab/Imaging: Test performed on Dec 25, 2019 08:19 Sodium 133 mmol/L Potassium 4.6 mmol/L Chloride 97 mmol/L CO2 26 mmol/L Anion Gap 14.6 BUN 15 mg/dL Creatinine 0.5 mg/dL Cr Clearance (Est) 169.1600 mL/min eGFR 126.3 mL/min Glucose 383 mg/dL Osmolality - Calculated 293 mOsm/kg Calcium 9.4 mg/dL Protein, Total 7.2 g/dL Albumin 3.9 g/dL Globulin 3.3 g/dL Bilirubin, Total 0.2 mg/dL ALT (SGPT) 9 U/L AST (SGOT) 10 U/L Alkaline Phosphatase 145 IU/L WBC 8.0 10 3/uL RBC 4.92 10 6/uL HGB 14.4 g/dL HCT 44.3 % MCV 90.0 fL MCH 29.3 pg MCHC 32.5 g/dL RDW 12.2 % Platelet Count 381 10 3/cmm MPV 10.6 fL Neutrophils 5.53 10 3/uL Lymphocytes 1.6 10 3/uL Monocytes 0.6 10 3/uL Eosinophils 0.2 10 3/uL Basophils 0.1 10 3/uL Neutrophil % 69.0 % Lymphocyte % 19.8 % Monocyte % 7.5 % Eosinophil % 2.6 % Basophils % 0.7 % NRBC % 0 % Test performed on Dec 25, 2019 08:04 Manual Diff Cancelled via OM: Entered in error Impression: 1. infiltrating adenocarcinoma of right breast status post lumpectomy and right axillary lymph node dissection done on 11/14/2017, final pathology report showed tumor measures 4 cm, T2, 3 out of 13 positive lymph nodes , no extranodal extension N1a p T2, N1a ,Mx pIIB, Ki-67 35%, ER 95%, CT 2%, both a strongly positive and HER-2/sarwat 2+ but negative by FISH amplification. Oncotype DX score checked on 12/09/2017 showed recurrence score 40 e.g. high risk History of diabetes mellitus Diabetic neuropathy Arthritis Depression/anxiety discussed with Ms Michel her Oncotype type score which was 40 and is high risk for recurrence e.g. and her case 5 years risk of recurrence with tamoxifen alone is 24% whereas with chemotherapy and tamoxifen is 15%. Based on that, recommended that she consider adjuvant chemotherapy followed by hormonal therapy and postlumpectomy radiation therapy: Adriamycin Cytoxan every 3 weeks ???4 followed by weekly Taxol ???12 followed by postlumpectomy radiation therapy and Arimidex for 5 years. Ms. Michel had an echocardiogram on 12/24/2017 which revealed ejection fraction of 57% and no wall motion abnormalities. She underwent venous access device placement with Dr. Arteaga on 01/09/2018. She did have a left subclavian Port-A-Cath placed. She began her first chemotherapy with Adriamycin and cyclophosphamide on 01/15/2018.Computed 4 cycles of chemotherapy with Adriamycin Cytoxan on 2018 , started on weekly Taxol ???12 on 04/10/2018 And concluded on 06/25/2018, started on Arimidex 1 mg by mouth daily for 5 years on 07/11/2018 Prescription for Arimidex was called in on 07/11/2018 but patient did not hop picker her prescription until her return visit on 11/10/2018, when new prescription was called in so her starting date her adjuvant hormonal therapy is 11/10/2018. She has tolerated it well overall with the exception of steroid induce hyperglycemia. We were able to get authorization to change her from Taxol to Abraxane as her glucose was running so high. Status post postlumpectomy radiation therapy, completed on 09/18/2018 Plan: Discussed with patient regarding her labs white blood count 9 hemoglobin 14 hematocrit 43.9 platelets 359,000 CMP within normal limit except sodium 133, glucose 365 and alk phos 131 compared to 145 earlier Clinically, patient is doing well with no new signs symptom suggestive of recurrence of disease and tolerating Arimidex/vitamin D and calcium well., She was concerned about right shoulder/axillary discomfort which happened after her boating trip and she thinks she may have overdone it and now her discomfort is improving and on exam there is no local tenderness or swelling seen. So we will continue to monitor and if there is no improvement in symptoms or worsening of symptoms will consider work-up. Patient is requesting Port-A-Cath removal, we will send request to Dr. Arteaga for port removal Patient return to clinic in 6 months with CBC CMP unless there is a worsening of her right shoulder or axillary symptoms and she will call us earlier. As far as hyperglycemia is concerned,, as per patient her PMD is monitoring her diabetes and adjusting her medications. She was advised to watch her diet and she was also advised to quit smoking and was offered any assistance she may need. Signed By: Kevyn Martinez M.D. <<Signature on File>>
== END 2020-05-10 08:21 | disposition home or self-care (01) ==
LOC: ONCMED 08:22
PROVIDERS: PCP Nurse Practitioner Family; Visit Provider Internal Medicine Hematology & Oncology
DX: C50.411 Malignant neoplasm of upper-outer quadrant of right female breast (principal); Z17.0 Estrogen receptor positive status [ER+]; C77.3 Secondary and unspecified malignant neoplasm of axilla and upper limb lymph nodes; E11.65 Type 2 diabetes mellitus with hyperglycemia; T38.0X5D Adverse effect of glucocorticoids and synthetic analogues, subsequent encounter; M25.511 Pain in right shoulder; M79.621 Pain in right upper arm; E11.40 Type 2 diabetes mellitus with diabetic neuropathy, unspecified; F41.8 Other specified anxiety disorders; M19.90 Unspecified osteoarthritis, unspecified site; Z92.3 Personal history of irradiation; Z79.811 Long term (current) use of aromatase inhibitors; Z79.4 Long term (current) use of insulin
CPT/HCPCS: 36415; 80053; 85025; 99214

== ENCOUNTER 2020-05-12 20:41 | Emergency (ER) | payer MEDICAID, SELFPAY ==
[2020-05-12 21:12] VITALS: BP 151/80; PULSE 105; RESP 17; TEMP 36.9; O2SAT 94; BMI 28.2
--- NOTE | 2020-05-12 22:48 | W.ED.EXTPRO ---
HPI - Extremity Problem General: Chief complaint: Extremity Problem,Nontraumatic Stated complaint: pain in right arm Time Seen by Provider: 05/12/20 22:45 Source: patient Mode of arrival: ambulatory Limitations: no limitations History of Present Illness: HPI Narrative: Patient comes in with right shoulder pain. Patient reports that she has had surgery for partial mastectomy done about 3 years ago since then she has done very well. Patient reports over the weekend she had help push [place] and since then she has had anterior lower shoulder pain along her incision line. Patient had seen Dr. Martinez her oncologist for her usual checkup and he noted no problems with her incision and thought maybe she had just strained a muscle. Patient appears well. Patient appears in no acute distress. Patient appears in mild to moderate pain. Review of Systems General: Reports: 10 or more systems reviewed and unremarkable except in HPI and below Musc: Reports: other (Right shoulder pain) [facility] ED PFSH: Medical History (Updated 05/12/20 @ 22:56 by AUGUSTA Mccord) Agoraphobia with panic disorder Major depressive disorder, recurrent, moderate Nicotine dependence, cigarettes, with other nicotine-induced disorders Social History Smoking and tobacco status: current every day smoker Physical Exam Const: COMMON NORMALS: no acute distress and patient oriented x3 GENERAL APPEARANCE: cooperative HENMT: COMMON NORMALS: normocephalic and Normal external nose present HEAD & SCALP: normal to inspection and normocephalic NOSE: Normal external nose present Eye: GENERAL EYE: appearance normal, both eyes and all related structures Neck/C-Spine: COMMON NORMALS: full ROM Chest: COMMONS NORMALS: normal inspection of the chest Resp: COMMON NORMALS: normal respiratory effort EFFORT & INSPECTION: Yes able to speak in complete sentences Cardio: COMMON NORMALS: regular rate and regular rhythm RATE: regular rate RHYTHM: regular rhythm GI: COMMON NORMALS: non-tender Back/Pelvis: COMMON NORMALS: thoracic and lumbar spine normal to inspection Extremity: NARRATIVE EXTREMITY EXAM: Tenderness is noted to the incision line of her prior mastectomy just under the right shoulder in the axillary area. No swelling or redness is noted to the area distal sensation of the extremity is intact without any signs of redness or swelling. Neuro: COMMON NORMALS: patient oriented x3 and moves all extremities Psych: COMMON NORMALS: mental status grossly normal and cooperative Skin: COMMON NORMALS: no rashes or lesions noted GENERAL SKIN EXAM: no rashes or lesions noted Course Vital Signs: Vital signs: Vital Signs Temperature 98.5 F 05/12/20 21:12 Pulse Rate 105 H 05/12/20 21:12 Respiratory Rate 17 05/12/20 21:12 Blood Pressure 151/80 05/12/20 21:12 Pulse Oximetry 94 05/12/20 21:12 MDM - Extremity (Nontraumatic) MDM Narrative: Medical decision making narrative: Patient comes in for evaluation of the right shoulder for concerns of injury or infection. On exam there is no signs of infection. Patient has good range of motion of the shoulder. Patient does have some tenderness to the right pectoralis muscle. No redness or swelling is noted. Differential diagnosis includes surgical adhesions, DVT, muscle strain, tendinitis. No need for x-ray was noted at this time. We will go ahead and treat patient with acetaminophen ibuprofen for mild to moderate pain. Patient was also given 6 tablets of hydrocodone per prescription for breakthrough pain. Patient reported understanding of care plan and need for follow-up or return. Discussed need for monitoring for signs of infection or possible DVT. Patient reported understanding and agreed to plan. Discharge Plan Discharge Patient Disposition: Home Clinical Impression: Muscle strain of right shoulder Qualifiers: Encounter type: initial encounter Qualified Code(s): S46.911A - Strain of unspecified muscle, fascia and tendon at shoulder and upper arm level, right arm, initial encounter Condition: Stable Prescriptions: New hydrocodone-acetaminophen 5-325 mg tablet 1 tab PO Q8H PRN (Reason: pain) Qty: 6 RF: 0 No Action desvenlafaxine succinate [Pristiq] 100 mg tablet extended release 24 hr 100 mg PO DAILY Qty: 30 RF: 2 clonazepam [Klonopin] 0.5 mg tablet 0.5 mg PO BID PRN (Reason: anxiety) Qty: 60 RF: 2 Victoza 2-Lakhwinder 0.6 mg/0.1 mL (18 mg/3 mL) pen injector 0.6 mg SUBCUT DAILY RF: 0 cyclobenzaprine 10 mg tablet 10 mg PO TID PRN (Reason: muscle spasm) Qty: 30 RF: 0 naproxen 500 mg tablet 500 mg PO BID PRN (Reason: pain) Qty: 20 RF: 0 Discharge Orders: Discharge ED (Routine); Ordered 05/12/20 Ordered By: Eloy Clayton Referrals: Nidia Reynolds NP [Primary Care Provider] - Discharge Diet: Usual diet Discharge Activity: Increase activity as tolerated Patient Instructions: Muscle Strain (ED), Opioid Safety Activity Restrictions/Additional Instructions: Activity as tolerated. Use acetaminophen or ibuprofen for further pain relief. Use hydrocodone for breakthrough pain. Use muscle rub and ice for further comfort measures. Follow-up with primary care as needed. Return to the emergency department for new concerns. Coding Level of Care Code ED Sausage Wrapper for Tila Marc
[2020-05-12] MEDS: HYDROcodone-acetaminophen 5-325 mg Tablet 1 TAB PO (23:32)
[2020-05-12 23:38] VITALS: BP 148/78; PULSE 104; RESP 20; O2SAT 94
== END 2020-05-12 23:35 | disposition home or self-care (01) ==
PROVIDERS: Emergency Provider Nurse Practitioner Family; PCP Nurse Practitioner Family
DX: S46.911A Strain of unspecified muscle, fascia and tendon at shoulder and upper arm level, right arm, initial encounter (principal); F17.210 Nicotine dependence, cigarettes, uncomplicated; X50.9XXA Other and unspecified overexertion or strenuous movements or postures, initial encounter
CPT/HCPCS: 99282

== ENCOUNTER 2020-11-10 11:23 | Outpatient (CLI) | payer MEDICAID, SELFPAY ==
[2020-11-10 11:59] LABS: Basophils % 0.5 %; Eosinophils # 0.2 10^3/uL (0.0-0.8); Hematocrit 40.7 % (37.0-47.0); Hemoglobin 13.7 g/dL (11.5-15.3); Lymphocytes # 1.2 10^3/uL (0.8-4.8); Lymphocytes % 15.1 %; Mean Corpuscular HGB Conc 33.7 g/dL (30.0-36.0); Mean Corpuscular Hemoglobin 28.7 pg (28.0-34.0); Mean Corpuscular Volume 85.3 fl (81-99); Mean Platelet Volume 9.9 fL (7.4-10.4); Monocytes # 0.5 10^3/uL (0.2-0.9); Monocytes % 6.4 %; Neutrophils # 6.19 10^3/uL (1.8-7.7); Neutrophils % 75.6 %; Nucleated Red Blood Cells % 0 %; Platelet Count 327 10^3/cmm (130-400); Red Blood Count 4.77 10^6/uL (4.1-5.3); Red Cell Distribution Width 12.4 % (12.1-15.1); White Blood Count 8.2 10^3/uL (4.0-10.0)
[2020-11-10 12:31] LABS: Alanine Aminotransferase 62 U/L (0-33); Albumin Level 3.6 g/dL (3.5-5.2); Alkaline Phosphatase 281 IU/L (35-105); Anion Gap 12.6 (5-19); Aspartate Amino Transferase 43 U/L (0-32); Blood Urea Nitrogen 6 mg/dL (8-23); Calcium 8.5 mg/dL (8.5-10.5); Carbon Dioxide 26 mmol/L (22-29); Chloride 88 mmol/L (98-107); Globulin 2.9 g/dL (1.3-4.6); Glomerular Filtration Rate 125.9 mL/min (90-130); Glucose 210 mg/dL (65-115); Osmolality Calculated 258 mOsm/kg (285-295); Potassium 4.6 mmol/L (3.5-5.1); Sodium 122 mmol/L (136-145); Total Bilirubin 0.3 mg/dL (0.15-1.2); Total Protein 6.5 g/dL (6.6-8.7)
--- NOTE | 2020-11-10 14:02 | ONC FU_ITS ---
Dr. Martinez follow up note Patient: Naima Michel Unit #: [id number]: [id number] Dicatated By: Kevyn Martinez M.D.Date of Visit:Nov 10, 2020 Onc Med Follow-up/Prog Note History of Present Illness: Mrs. Michel is a 60-year-old female recently diagnosed with right breast cancer. She underwent right lumpectomy with right axillary lymph node dissection on 11/14/2017 and final pathology report showed 4 cm invasive ductal carcinoma and 3 out of 13 lymph nodes positive for metastatic disease within no extranodal extension identified. As per patient, she has history of left breast biopsy done in 2001 and it was benign. She did not have any follow-up mammograms in the last many years until September 2017. She noticed a mass in her right breast and she got concern. On 09/12/2017 she underwent mammographic which showed at the 10:00 position there was a mass about 3.1 x 2.5 x 4.1 cm, with axillary lymphadenopathy. Mrs Michel then underwent ultrasound-guided biopsy of right breast mass which showed infiltrating adenocarcinoma. She also had right axillary lymph node biopsy also showed infiltrating adenocarcinoma. She subsequently underwent right breast lumpectomy with right axillary lymph node dissection as mentioned above. Oncotype DX score 40 e.g. high risk She denies any history of hormonal supplement. Ms. Michel was evaluated and treatment options were discussed. Given her high Oncotype DX score with tamoxifen alone five-year recurrence risk was 24 presents whereas with chemotherapy and tamoxifen the risk was 15%. He did offer her chemotherapy with Adriamycin Cytoxan every 3 weeks for 4 weeks then followed by weekly Taxol followed by postlumpectomy radiation therapy and then Arimidex for 5 years. Ms. Michel had an echocardiogram on 12/24/2017 which revealed ejection fraction of 57% and no wall motion abnormalities. She underwent venous access device placement with Dr. Arteaga on 01/09/2018. She did have a left subclavian Port-A-Cath placed. She began her first chemotherapy with Adriamycin and cyclophosphamide on 01/15/2018 And completed 4 cycles of chemotherapy with Adriamycin Cytoxan on 03/26/2018 and started on weekly Taxol ???12 on 04/10/2018. Her paclitaxel was changed to protein-bound paclitaxel (Abraxane) at week 4 due to steroid-induced hyperglycemia.Concluded her weekly taxane ???12 on 06/25/2018 Prescription was given on Arimidex 1 mg by mouth daily for 5 years on 07/11/2018 Prescription was called in on 07/11/2018 patient did not miner pick her prescription until seen back on 11/10/2018, at that time another prescription was called in and patient was informed take her adjuvant hormonal therapy with Arimidex daily for 5 years along with vitamin D and calcium supplement Patient came back to clinic on 01/12/2019 and said she could not get her Arimidex again because of insurance refused to cover the prescription. Reason unknown She was given prescription and asked her to get it filled from hospital pharmacy under [facility]B program.Which was finally done and patient start taking Arimidex 1 mg by mouth daily on 01/12/2019 for 5 years s/p postlumpectomy radiation therapy Completed on 09/18/2018 . tolerating Arimidex/vitamin D/calcium well Follow-up mammogram done on December 21, 2019 showed post therapy changes in the right breast but no evidence of recurrent tumor, negative left breast Came for follow-up, denies any specific complaints, no fever chills, no nausea or vomiting, no diarrhea constipation, still smoke about half pack a day., Tolerating Arimidex/vitamin D/calcium well otherwise Medications: Albuterol Sulfate 1 puff(s) (of 108 (90 base) mcg/act) Aerosol Powder, Breath Activated Inhalation PRN, Cetirizine HCl 1 Tablet (of 10 mg) Capsule Oral daily, ClonazePAM 1 Tablet (of 0.5 mg) Oral b.i.d., Desvenlafaxine ER 1 Tablet (of 50 mg) Tablet SR 24 HR Oral daily, Gabapentin 1 Tablet (of 600 mg) Oral t.i.d., HumuLIN R 3 - 11 Units (of 100 Units/mL) Injection q 4 hours PRN, Levemir FlexTouch 80 Unit(s) Subcutaneous, Magnesium 1 Tablet (of 400 mg) Capsule Oral daily, Victoza 0.6 mg Subcutaneous daily Allergies: Tetracycline HCl Review of Systems: Review of Systems is not available for this patient. Vital Signs: Performed on Nov 10, 2020 13:08 Height - 69.00 in Weight - 197.2 lbs (HIGH) BSA - 2.05 sq.m BMI - 29.12 Temperature - 97.3 F (LOW) Pulse - 99 /min Respiration - 18 /min BP - 153/80 mm(hg) (HIGH) O2 Sat - 98 % Pain - 0 Fatigue - 0 Performance Status: 0 - Fully active, able to carry on all predisease activities without restrictions. (ECOG) Physical Examination: Respiratory - Lungs are clear to auscultation, Cardiovascular - Regular rate and rhythm of heart, Gastrointestinal - Soft, bowel sounds present, Extremities - No visible edema. Lab/Imaging: Most recent lab results are not available for this patient. Impression: 1. infiltrating adenocarcinoma of right breast status post lumpectomy and right axillary lymph node dissection done on 11/14/2017, final pathology report showed tumor measures 4 cm, T2, 3 out of 13 positive lymph nodes , no extranodal extension N1a p T2, N1a ,Mx pIIB, Ki-67 35%, ER 95%, CA 2%, both a strongly positive and HER-2/sarwat 2+ but negative by FISH amplification. Oncotype DX score checked on 12/09/2017 showed recurrence score 40 e.g. high risk History of diabetes mellitus Diabetic neuropathy Arthritis Depression/anxiety discussed with Ms Michel her Oncotype type score which was 40 and is high risk for recurrence e.g. and her case 5 years risk of recurrence with tamoxifen alone is 24% whereas with chemotherapy and tamoxifen is 15%. Based on that, recommended that she consider adjuvant chemotherapy followed by hormonal therapy and postlumpectomy radiation therapy: Adriamycin Cytoxan every 3 weeks ???4 followed by weekly Taxol ???12 followed by postlumpectomy radiation therapy and Arimidex for 5 years. Ms. Michel had an echocardiogram on 12/24/2017 which revealed ejection fraction of 57% and no wall motion abnormalities. She underwent venous access device placement with Dr. Arteaga on 01/09/2018. She did have a left subclavian Port-A-Cath placed. She began her first chemotherapy with Adriamycin and cyclophosphamide on 01/15/2018.Computed 4 cycles of chemotherapy with Adriamycin Cytoxan on 2018 , started on weekly Taxol ???12 on 04/10/2018 And concluded on 06/25/2018, started on Arimidex 1 mg by mouth daily for 5 years on 07/11/2018 Prescription for Arimidex was called in on 07/11/2018 but patient did not miner pick her prescription until her return visit on 11/10/2018, when new prescription was called in so her starting date her adjuvant hormonal therapy is 11/10/2018. She has tolerated it well overall with the exception of steroid induce hyperglycemia. We were able to get authorization to change her from Taxol to Abraxane as her glucose was running so high. Status post postlumpectomy radiation therapy, completed on 09/18/2018 Plan: Discussed with patient regarding her labs white blood count 8.2 hemoglobin 13.7 hematocrit 40.7 platelets 327,000 CMP within normal limit except sodium 122 compared to 133 earlier, glucose 210, ALT 62, AST 43 compared to 7/6 on May 10, 2020. Clinically, patient is doing reasonably well with no new signs symptoms as to progressive disease, patient says she went to see her PMD about 2 weeks ago at that time her lab work-up shows low sodium and some abnormality in her liver function test, patient was advised to cut down free water intake and when her labs done on October 24, 2020 reviewed showed her ALT was 45 AST was 39 and today is gone up to ALT 62 and AST 43, etiology remains unclear could be due to fatty liver as patient has gained significant amount of weight, patient denies alcohol use patient denies any new medication, her alk phos is also gone up to 281 compared to 231 in April 2020, her bilirubin is within normal rangeAnd other possibility could be on rare occasion, Arimidex can cause acute hepatitis, so we will hold her Arimidex and then repeat CMP in a week if there is no improvement in her transaminases/alk phos then will consider right upper quadrant sonogram with special attention to the liver. Patient return to clinic in 1 week with CMP Signed By: Kevyn Martinez M.D. <<Signature on File>>
== END 2020-11-10 11:24 | disposition home or self-care (01) ==
LOC: ONCMED 11:25
PROVIDERS: PCP Nurse Practitioner Family; Visit Provider Internal Medicine Hematology & Oncology
DX: C50.811 Malignant neoplasm of overlapping sites of right female breast (principal); Z17.0 Estrogen receptor positive status [ER+]; E11.40 Type 2 diabetes mellitus with diabetic neuropathy, unspecified; F41.9 Anxiety disorder, unspecified; F32.9 Major depressive disorder, single episode, unspecified; Z79.899 Other long term (current) drug therapy; Z79.811 Long term (current) use of aromatase inhibitors; Z92.21 Personal history of antineoplastic chemotherapy; Z92.3 Personal history of irradiation
CPT/HCPCS: 36415; 80053; 85025; 99214

== ENCOUNTER 2020-11-17 06:33 | Outpatient (CLI) | payer MEDICAID, SELFPAY ==
[2020-11-17 09:41] LABS: Alanine Aminotransferase 68 U/L (0-33); Albumin Level 3.4 g/dL (3.5-5.2); Alkaline Phosphatase 372 IU/L (35-105); Anion Gap 14.2 (5-19); Aspartate Amino Transferase 48 U/L (0-32); Blood Urea Nitrogen 10 mg/dL (8-23); Calcium 8.9 mg/dL (8.5-10.5); Carbon Dioxide 24 mmol/L (22-29); Chloride 87 mmol/L (98-107); Globulin 3.3 g/dL (1.3-4.6); Glucose 185 mg/dL (65-115); Osmolality Calculated 256 mOsm/kg (285-295); Potassium 4.2 mmol/L (3.5-5.1); Sodium 121 mmol/L (136-145); Total Bilirubin 0.4 mg/dL (0.15-1.2); Total Protein 6.7 g/dL (6.6-8.7)
--- NOTE | 2020-11-17 17:19 | ONC FU_ITS ---
Dr. Martinez follow up note Patient: Naima Michel Unit #: [id number]: 1960 Dicatated By: Kevyn Martinez M.D.Date of Visit:Nov 17, 2020 Onc Med Follow-up/Prog Note History of Present Illness: Mrs. Michel is a 60-year-old female recently diagnosed with right breast cancer. She underwent right lumpectomy with right axillary lymph node dissection on 11/14/2017 and final pathology report showed 4 cm invasive ductal carcinoma and 3 out of 13 lymph nodes positive for metastatic disease within no extranodal extension identified. As per patient, she has history of left breast biopsy done in 2001 and it was benign. She did not have any follow-up mammograms in the last many years until September 2017. She noticed a mass in her right breast and she got concern. On 09/12/2017 she underwent mammographic which showed at the 10:00 position there was a mass about 3.1 x 2.5 x 4.1 cm, with axillary lymphadenopathy. Mrs Michel then underwent ultrasound-guided biopsy of right breast mass which showed infiltrating adenocarcinoma. She also had right axillary lymph node biopsy also showed infiltrating adenocarcinoma. She subsequently underwent right breast lumpectomy with right axillary lymph node dissection as mentioned above. Oncotype DX score 40 e.g. high risk She denies any history of hormonal supplement. Ms. Michel was evaluated and treatment options were discussed. Given her high Oncotype DX score with tamoxifen alone five-year recurrence risk was 24 presents whereas with chemotherapy and tamoxifen the risk was 15%. He did offer her chemotherapy with Adriamycin Cytoxan every 3 weeks for 4 weeks then followed by weekly Taxol followed by postlumpectomy radiation therapy and then Arimidex for 5 years. Ms. Michel had an echocardiogram on 12/24/2017 which revealed ejection fraction of 57% and no wall motion abnormalities. She underwent venous access device placement with Dr. Arteaga on 01/09/2018. She did have a left subclavian Port-A-Cath placed. She began her first chemotherapy with Adriamycin and cyclophosphamide on 01/15/2018 And completed 4 cycles of chemotherapy with Adriamycin Cytoxan on 03/26/2018 and started on weekly Taxol ???12 on 04/10/2018. Her paclitaxel was changed to protein-bound paclitaxel (Abraxane) at week 4 due to steroid-induced hyperglycemia.Concluded her weekly taxane ???12 on 06/25/2018 Prescription was given on Arimidex 1 mg by mouth daily for 5 years on 07/11/2018 Prescription was called in on 07/11/2018 patient did not pick up attendant her prescription until seen back on 11/10/2018, at that time another prescription was called in and patient was informed take her adjuvant hormonal therapy with Arimidex daily for 5 years along with vitamin D and calcium supplement Patient came back to clinic on 01/12/2019 and said she could not get her Arimidex again because of insurance refused to cover the prescription. Reason unknown She was given prescription and asked her to get it filled from hospital pharmacy under [facility] program.Which was finally done and patient start taking Arimidex 1 mg by mouth daily on 01/12/2019 for 5 years s/p postlumpectomy radiation therapy Completed on 09/18/2018 . tolerating Arimidex/vitamin D/calcium well Follow-up mammogram done on December 21, 2019 showed post therapy changes in the right breast but no evidence of recurrent tumor, negative left breast Came for follow-up, denies any specific complaints, no fever chills, no nausea or vomiting, no diarrhea constipation, no abdominal pain, no jaundice, no fever chills, she is off Arimidex because of elevated transaminases Medications: Albuterol Sulfate 1 puff(s) (of 108 (90 base) mcg/act) Aerosol Powder, Breath Activated Inhalation PRN, Cetirizine HCl 1 Tablet (of 10 mg) Capsule Oral daily, ClonazePAM 1 Tablet (of 0.5 mg) Oral b.i.d., Desvenlafaxine ER 1 Tablet (of 50 mg) Tablet SR 24 HR Oral daily, Gabapentin 1 Tablet (of 600 mg) Oral t.i.d., HumuLIN R 3 - 11 Units (of 100 Units/mL) Injection q 4 hours PRN, Levemir FlexTouch 80 Unit(s) Subcutaneous, Magnesium 1 Tablet (of 400 mg) Capsule Oral daily, Victoza 0.6 mg Subcutaneous daily Allergies: Tetracycline HCl Review of Systems: Review of Systems is not available for this patient. Vital Signs: Performed on Nov 17, 2020 10:20 Height - 69.00 in Weight - 197 lbs (LOW) BSA - 2.05 sq.m BMI - 29.09 Temperature - 96.3 F (LOW) Pulse - 99 /min Respiration - 18 /min BP - 151/76 mm(hg) (HIGH) O2 Sat - 97 % Pain - 0 Fatigue - 2 Performance Status: 0 - Fully active, able to carry on all predisease activities without restrictions. (ECOG) Physical Examination: Respiratory - Lungs are clear to auscultation, Cardiovascular - Regular rate and rhythm of heart, Gastrointestinal - Soft, bowel sounds present, Extremities - No visible edema .No mouth sores, no thrush, no jaundice. Lab/Imaging: Most recent lab results are not available for this patient. Impression: 1. infiltrating adenocarcinoma of right breast status post lumpectomy and right axillary lymph node dissection done on 11/14/2017, final pathology report showed tumor measures 4 cm, T2, 3 out of 13 positive lymph nodes , no extranodal extension N1a p T2, N1a ,Mx pIIB, Ki-67 35%, ER 95%, SC 2%, both a strongly positive and HER-2/sarwat 2+ but negative by FISH amplification. Oncotype DX score checked on 12/09/2017 showed recurrence score 40 e.g. high risk History of diabetes mellitus Diabetic neuropathy Arthritis Depression/anxiety discussed with Ms Michel her Oncotype type score which was 40 and is high risk for recurrence e.g. and her case 5 years risk of recurrence with tamoxifen alone is 24% whereas with chemotherapy and tamoxifen is 15%. Based on that, recommended that she consider adjuvant chemotherapy followed by hormonal therapy and postlumpectomy radiation therapy: Adriamycin Cytoxan every 3 weeks ???4 followed by weekly Taxol ???12 followed by postlumpectomy radiation therapy and Arimidex for 5 years. Ms. Michel had an echocardiogram on 12/24/2017 which revealed ejection fraction of 57% and no wall motion abnormalities. She underwent venous access device placement with Dr. Arteaga on 01/09/2018. She did have a left subclavian Port-A-Cath placed. She began her first chemotherapy with Adriamycin and cyclophosphamide on 01/15/2018.Computed 4 cycles of chemotherapy with Adriamycin Cytoxan on 2018 , started on weekly Taxol ???12 on 04/10/2018 And concluded on 06/25/2018, started on Arimidex 1 mg by mouth daily for 5 years on 07/11/2018 Prescription for Arimidex was called in on 07/11/2018 but patient did not pick up attendant her prescription until her return visit on 11/10/2018, when new prescription was called in so her starting date her adjuvant hormonal therapy is 11/10/2018. She has tolerated it well overall with the exception of steroid induce hyperglycemia. We were able to get authorization to change her from Taxol to Abraxane as her glucose was running so high. Status post postlumpectomy radiation therapy, completed on 09/18/2018 Plan: Discussed with patient regarding her CMP which is within normal limit except ALT 68 compared to 62 previously and AST 48 compared to 43 previously on November 10, 2020, sodium 121, alk phos 372 but bilirubin is normal range Clinically, patient doing well with no new signs symptom but her follow-up labs shows persistent elevated transaminases and alk phos, at this point we will consider right upper quadrant sonogram with special attention to liver and common bile duct, patient was advised to resume her Arimidex along with vitamin D and calcium and then return to clinic after abdominal sonogram with CMP. Signed By: Kevyn Martinez M.D. <<Signature on File>>
== END 2020-11-17 06:34 | disposition home or self-care (01) ==
LOC: ONCMED 06:33
PROVIDERS: PCP Nurse Practitioner Family; Visit Provider Internal Medicine Hematology & Oncology
DX: C50.811 Malignant neoplasm of overlapping sites of right female breast (principal); Z17.0 Estrogen receptor positive status [ER+]; E11.40 Type 2 diabetes mellitus with diabetic neuropathy, unspecified; F41.9 Anxiety disorder, unspecified; F32.A Depression, unspecified; Z79.899 Other long term (current) drug therapy; Z79.811 Long term (current) use of aromatase inhibitors; Z92.21 Personal history of antineoplastic chemotherapy; Z92.3 Personal history of irradiation
CPT/HCPCS: 36415; 80053; 99214

== ENCOUNTER 2020-11-26 20:46 | Emergency (ER) | payer MEDICAID, SELFPAY ==
[2020-11-26 20:52] VITALS: BP 145/85; PULSE 113; RESP 18; TEMP 36.6; O2SAT 95; BMI 29.5
--- NOTE | 2020-11-26 21:06 | W.ED.ABDPA2 ---
Documented by User: AUGUSTA Mccord 11/27/20 00:36 HPI - Abdominal Pain General: Chief Complaint: Abdominal Pain Stated Complaint: Severe ABD Pain Time Seen by Provider: 11/26/20 21:06 History of Present Illness: HPI narrative: 60-year-old female comes in today with complaints of epigastric abdominal pain radiating to the right side, patient states pain has been persistent for the last week with worsening today. Patient also reports episodes of vomiting. Patient states pain is worse after eating. Patient has had a previous episode about 3 years ago. Patient does continue to have her gallbladder. Patient has has a history of a hysterectomy. Patient denies any other medical problems. Patient did report the ibuprofen seemed to help her pain. MD elicited complaint: abdominal pain Associated Symptoms: Reports vomiting Review of Systems General: Reports: 10 or more systems reviewed and unremarkable except in HPI and below GI: Reports: abdominal pain and vomiting [facility] ED PFSH: Medical History (Updated 11/27/20 @ 00:26 by AUGUSTA Mccord) Agoraphobia with panic disorder Major depressive disorder, recurrent, moderate Nicotine dependence, cigarettes, with other nicotine-induced disorders Social History Smoking and tobacco status: current every day smoker Physical Exam Const: COMMON NORMALS: no acute distress and patient oriented x3 GENERAL APPEARANCE: cooperative HENMT: COMMON NORMALS: normocephalic and Normal external nose present HEAD & SCALP: normal to inspection and normocephalic NOSE: Normal external nose present MOUTH: Normal oral and palatal mucosa present Eye: GENERAL EYE: appearance normal, both eyes and all related structures Neck/C-Spine: COMMON NORMALS: full ROM Chest: COMMONS NORMALS: normal inspection of the chest Resp: COMMON NORMALS: normal respiratory effort EFFORT & INSPECTION: Yes able to speak in complete sentences Cardio: COMMON NORMALS: regular rate and regular rhythm RATE: regular rate RHYTHM: regular rhythm GI: COMMON NORMALS: Soft to palpation AUSCULTATION: Yes normoactive bowel sounds PALPATION: Yes Soft to palpation and Yes Tenderness to palpation present (GI) Details: RUQ PERCUSSION: normal to percussion : COMMON NORMALS: Yes no CVA tenderness BLADDER/KIDNEY EXAM: Yes no CVA tenderness Back/Pelvis: COMMON NORMALS: no CVA tenderness and thoracic and lumbar spine normal to inspection Extremity: COMMON NORMALS: normal to inspection Neuro: COMMON NORMALS: patient oriented x3 and moves all extremities Psych: COMMON NORMALS: mental status grossly normal and cooperative Skin: COMMON NORMALS: no rashes or lesions noted GENERAL SKIN EXAM: no rashes or lesions noted Course ED course: 10, reviewed patient's CT scan and labs with Dr. Hines. He recommended I discussed this with Dr. Arteaga regarding possible surgery for cholecystitis. I discussed the patient with Dr. Arteaga he believes the swelling of the gallbladder may be secondary to the metastatic liver disease. Her labs at this time do not indicate a significant infection. He recommends further investigation regarding the metastasis of the liver. I discussed this with patient who reported understanding of plan. Patient is to see Dr. Martinez on Saturday for a ultrasound of the liver regarding some abnormal liver enzymes and follow-up relating her breast cancer. I further discussed with the CT scan and recommended that she have Dr. Martinez look at the results regarding the exam today. Patient agreed to plan. Vital Signs: Vital signs: Vital Signs Temperature 97.8 F 11/26/20 20:52 Pulse Rate 103 H 11/27/20 00:38 Respiratory Rate 18 11/27/20 00:38 Blood Pressure 144/77 11/27/20 00:38 Pulse Oximetry 94 11/27/20 00:38 MDM - Abdominal Pain MDM Narrative: Medical decision making narrative: Patient came in today with some right upper quadrant pain. Patient reported some right upper quadrant abdominal discomfort for about the last week but worsened symptoms tonight. On exam patient had some mild tenderness in the right upper quadrant on deep palpation. Respirations were even lungs were clear to auscultation. Bowel sounds were present. Skin was warm and dry. Vital signs were normal. Differential diagnosis includes but not limited to gastritis, gastroenteritis, pancreatitis, gallbladder disease. Laboratory values showed a 10,000 white count. CMP noted a sodium of 124 and chloride of 91. Patient's blood glucose was 242. Some mild elevation ALTs and AST's were noted. Patient had some more significant elevation in her alkaline phosphatase. Bilirubin was normal. Lipase was mildly elevated at 110s. CT scan showed some metastatic disease in the liver with some swelling of the gallbladder and some stones. This was reviewed with Dr. Hines who recommended further discussion with Dr. Arteaga. After discussion with Dr. Arteaga I reviewed further with Dr. Hines who recommended that we have patient follow-up with Dr. Arteaga outpatient and continue further evaluation with oncology relating metastatic liver disease. Patient already has an appointment with Dr. Martinez on Saturday. I will place a case management request for Dr. Arteaga follow-up. I reviewed this with patient who is very agreeable to plan. Patient was written for some hydrocodone to help with her abdominal pain and along with Zofran for nausea. Lab Data: Labs: Lab Results 11/26/20 11/26/20 11/26/20 21:26 21:26 21:26 WBC 10.3 10^3/uL H 10 ^3/uL (4.0-10.0) RBC 4.74 10^6/uL 10^6 /uL (4.1-5.3) Hgb 13.7 g/dL g/dL (11.5-15.3) Hct 39.6 % % (37.0-47.0) MCV 83.5 fl fl (81-99) MCH 28.9 pg pg (28.0-34.0) MCHC 34.6 g/dL g/dL (30.0-36.0) RDW 12.5 % % (12.1-15.1) Plt Count 307 10^3/cmm 10^3 /cmm (130-400) MPV 10.3 fL fL (7.4-10.4) Neut % (Auto) 80.7 % % Lymph % (Auto) 10.7 % % [place] % (Auto) 6.7 % % Eos % (Auto) 0.7 % % Baso % (Auto) 0.6 % % Neut # (Auto) 8.34 10^3/uL H 10 ^3/uL (1.8-7.7) Lymph # (Auto) 1.1 10^3/uL 10^3/ uL (0.8-4.8) [place] # (Auto) 0.7 10^3/uL 10^3/ uL (0.2-0.9) Eos # (Auto) 0.1 10^3/uL 10^3/ uL (0.0-0.8) Baso # (Auto) 0.1 10^3/uL 10^3/ uL (0.0-0.1) Nucleated RBC % (a uto) 0 % % Nucleated RBCs # 0.0 /100WBC /100W BC Sodium 124 mmol/L L mmol /L (136-145) Potassium 4.3 mmol/L mmol/L (3.5-5.1) Chloride 91 mmol/L L mmol/ L (98-107) Carbon Dioxide 23 mmol/L mmol/L (22-29) Anion Gap 14.3 (5-19) BUN 10 mg/dL mg/dL (8-23) Creatinine 0.5 mg/dL mg/dL (0.5-0.9) GFR Calculation 125.9 mL/min mL/m in (90-130) Glucose 242 mg/dL H mg/dL (65-115) Calculated Osmolal ity 265 mOsm/kg L mOs m/kg (285-295) Calcium 8.6 mg/dL mg/dL (8.5-10.5) Total Bilirubin 0.7 mg/dL mg/dL (0.15-1.2) AST 65 U/L H U/L (0-32) ALT 82 U/L H U/L (0-33) Alkaline Phosphata se 555 IU/L H IU/L (35-105) Total Protein 6.3 g/dL L g/dL (6.6-8.7) Albumin 3.5 g/dL g/dL (3.5-5.2) Globulin 2.8 g/dL g/dL (1.3-4.6) Lipase 117 U/L H U/L (13-60) Urine Color Yellow (Yellow) Urine Appearance Clear (CLEAR) Urine pH 5 (5-7) Ur Specific Gravit y 1.020 (1.005-1.030) Urine Protein 3+ H (Negative) Urine Glucose (UA) 1+ H (Normal) Urine Ketones Negative (Negative) Urine Blood 2+ H (Negative) Urine Nitrate Negative (Negative) Urine Bilirubin 1+ H (Negative) Urine Urobilinogen 4 mg/dL H mg/dL (Negative) Ur Leukocyte Susi ase Negative (Negative) Urine RBC 5-10 /hpf H /hpf (0-2) Urine WBC 0-4 /hpf H /hpf (0-5) Ur Squamous Epith Cells 15-25 /hpf H /hpf (0-5) Amorphous Sediment Not Reportable Urine Bacteria 1+ /hpf H /hpf (NONE) Hyaline Casts 0-4 /lpf H /lpf Urine Mucus 1+ /hpf /hpf Discharge Plan Discharge Patient Disposition: Home Clinical Impression: Abdominal pain Qualifiers: Abdominal location: right upper quadrant Qualified Code(s): R10.11 - Right upper quadrant pain Condition: Stable Prescriptions: New ondansetron 4 mg tablet,disintegrating 4 mg PO Q8H PRN (Reason: nausea and vomiting) Qty: 7 RF: 0 Changed hydrocodone-acetaminophen 5-325 mg tablet 1 tab PO QID PRN (Reason: pain) Qty: 12 RF: 0 No Action desvenlafaxine succinate [Pristiq] 100 mg tablet extended release 24 hr 100 mg PO DAILY Qty: 30 RF: 2 Victoza 2-Lakhwinder 0.6 mg/0.1 mL (18 mg/3 mL) pen injector 0.6 mg SUBCUT DAILY RF: 0 clonazepam [Klonopin] 0.5 mg tablet 0.5 mg PO BID PRN (Reason: anxiety) Qty: 58 RF: 2 cyclobenzaprine 10 mg tablet 10 mg PO TID PRN (Reason: muscle spasm) Qty: 30 RF: 0 naproxen 500 mg tablet 500 mg PO BID PRN (Reason: pain) Qty: 20 RF: 0 Discharge Orders: Discharge ED (Routine); Ordered 11/27/20 Ordered By: Eloy Clayton Referrals: Nidia Reynolds NP [Primary Care Provider] - Discharge Diet: Usual diet Discharge Activity: Increase activity as tolerated Patient Instructions: Abdominal Pain (ED), Opioid Safety Activity Restrictions/Additional Instructions: Home and rest. Drink plenty of fluids. Clear liquid diet until pain starts to resolve. Avoid fatty and greasy foods. Follow-up with primary care as needed. Case management will get you an appointment with the surgeon, Dr. Arteaga for further follow-up. Continue with your appointment with Dr. Martinez. Return to the ER for high fever or uncontrolled pain. Coding Level of Care Code ED Photogrammetric Surveyor for Chg Fwd Exam Comprehensive Documented by User: Rosa Maria Hines MD 11/27/20 00:44 HPI - Abdominal Pain General: Chief Complaint: Abdominal Pain Stated Complaint: Severe ABD Pain Time Seen by Provider: 11/26/20 21:06 PFSH ED PFSH: Medical History (Updated 11/27/20 @ 00:26 by AUGUSTA Mccord) Agoraphobia with panic disorder Major depressive disorder, recurrent, moderate Nicotine dependence, cigarettes, with other nicotine-induced disorders Social History Smoking and tobacco status: current every day smoker Course Vital Signs: Vital signs: Vital Signs Temperature 97.8 F 11/26/20 20:52 Pulse Rate 103 H 11/27/20 00:38 Respiratory Rate 18 11/27/20 00:38 Blood Pressure 144/77 11/27/20 00:38 Pulse Oximetry 94 11/27/20 00:38 MDM - Abdominal Pain MDM Narrative: Medical decision making narrative: I discussed patient with midlevel. He had spoke to his surgeon felt the findings are likely from her metastatic disease in her liver. She is afebrile here white count is normal. She is to follow-up with general surgery along with oncology. She is return to the ER for abdominal pain worsens or she has any fever. She understands and agrees to plan. Lab Data: Labs: Lab Results 11/26/20 11/26/20 11/26/20 21:26 21:26 21:26 WBC 10.3 10^3/uL H 10 ^3/uL (4.0-10.0) RBC 4.74 10^6/uL 10^6 /uL (4.1-5.3) Hgb 13.7 g/dL g/dL (11.5-15.3) Hct 39.6 % % (37.0-47.0) MCV 83.5 fl fl (81-99) MCH 28.9 pg pg (28.0-34.0) MCHC 34.6 g/dL g/dL (30.0-36.0) RDW 12.5 % % (12.1-15.1) Plt Count 307 10^3/cmm 10^3 /cmm (130-400) MPV 10.3 fL fL (7.4-10.4) Neut % (Auto) 80.7 % % Lymph % (Auto) 10.7 % % [place] % (Auto) 6.7 % % Eos % (Auto) 0.7 % % Baso % (Auto) 0.6 % % Neut # (Auto) 8.34 10^3/uL H 10 ^3/uL (1.8-7.7) Lymph # (Auto) 1.1 10^3/uL 10^3/ uL (0.8-4.8) [place] # (Auto) 0.7 10^3/uL 10^3/ uL (0.2-0.9) Eos # (Auto) 0.1 10^3/uL 10^3/ uL (0.0-0.8) Baso # (Auto) 0.1 10^3/uL 10^3/ uL (0.0-0.1) Nucleated RBC % (a uto) 0 % % Nucleated RBCs # 0.0 /100WBC /100W BC Sodium 124 mmol/L L mmol /L (136-145) Potassium 4.3 mmol/L mmol/L (3.5-5.1) Chloride 91 mmol/L L mmol/ L (98-107) Carbon Dioxide 23 mmol/L mmol/L (22-29) Anion Gap 14.3 (5-19) BUN 10 mg/dL mg/dL (8-23) Creatinine 0.5 mg/dL mg/dL (0.5-0.9) GFR Calculation 125.9 mL/min mL/m in (90-130) Glucose 242 mg/dL H mg/dL (65-115) Calculated Osmolal ity 265 mOsm/kg L mOs m/kg (285-295) Calcium 8.6 mg/dL mg/dL (8.5-10.5) Total Bilirubin 0.7 mg/dL mg/dL (0.15-1.2) AST 65 U/L H U/L (0-32) ALT 82 U/L H U/L (0-33) Alkaline Phosphata se 555 IU/L H IU/L (35-105) Total Protein 6.3 g/dL L g/dL (6.6-8.7) Albumin 3.5 g/dL g/dL (3.5-5.2) Globulin 2.8 g/dL g/dL (1.3-4.6) Lipase 117 U/L H U/L (13-60) Urine Color Yellow (Yellow) Urine Appearance Clear (CLEAR) Urine pH 5 (5-7) Ur Specific Gravit y 1.020 (1.005-1.030) Urine Protein 3+ H (Negative) Urine Glucose (UA) 1+ H (Normal) Urine Ketones Negative (Negative) Urine Blood 2+ H (Negative) Urine Nitrate Negative (Negative) Urine Bilirubin 1+ H (Negative) Urine Urobilinogen 4 mg/dL H mg/dL (Negative) Ur Leukocyte Susi ase Negative (Negative) Urine RBC 5-10 /hpf H /hpf (0-2) Urine WBC 0-4 /hpf H /hpf (0-5) Ur Squamous Epith Cells 15-25 /hpf H /hpf (0-5) Amorphous Sediment Not Reportable Urine Bacteria 1+ /hpf H /hpf (NONE) Hyaline Casts 0-4 /lpf H /lpf Urine Mucus 1+ /hpf /hpf Discharge Plan Discharge Patient Disposition: Home Clinical Impression: Abdominal pain Qualifiers: Abdominal location: right upper quadrant Qualified Code(s): R10.11 - Right upper quadrant pain Condition: Stable Prescriptions: New ondansetron 4 mg tablet,disintegrating 4 mg PO Q8H PRN (Reason: nausea and vomiting) Qty: 7 RF: 0 Changed hydrocodone-acetaminophen 5-325 mg tablet 1 tab PO QID PRN (Reason: pain) Qty: 12 RF: 0 No Action desvenlafaxine succinate [Pristiq] 100 mg tablet extended release 24 hr 100 mg PO DAILY Qty: 30 RF: 2 Victoza 2-Lakhwinder 0.6 mg/0.1 mL (18 mg/3 mL) pen injector 0.6 mg SUBCUT DAILY RF: 0 clonazepam [Klonopin] 0.5 mg tablet 0.5 mg PO BID PRN (Reason: anxiety) Qty: 58 RF: 2 cyclobenzaprine 10 mg tablet 10 mg PO TID PRN (Reason: muscle spasm) Qty: 30 RF: 0 naproxen 500 mg tablet 500 mg PO BID PRN (Reason: pain) Qty: 20 RF: 0 Discharge Orders: Discharge ED (Routine); Ordered 11/27/20 Ordered By: Eloy Clayton Referrals: Nidia Reynolds NP [Primary Care Provider] - Discharge Diet: Usual diet Discharge Activity: Increase activity as tolerated Patient Instructions: Abdominal Pain (ED), Opioid Safety Activity Restrictions/Additional Instructions: Home and rest. Drink plenty of fluids. Clear liquid diet until pain starts to resolve. Avoid fatty and greasy foods. Follow-up with primary care as needed. Case management will get you an appointment with the surgeon, Dr. Arteaga for further follow-up. Continue with your appointment with Dr. Martinez. Return to the ER for high fever or uncontrolled pain. Coding Level of Care Code ED Photogrammetric Surveyor for Chg Fwd Exam Comprehensive
--- NOTE | 2020-11-26 21:17 | CTR_ITS ---
PROCEDURE INFORMATION: Exam: CT Abdomen And Pelvis With Contrast Exam date and time: 11/26/2020 9:17 PM Age: 60 years old Clinical indication: Abdominal pain; Prior surgery; Surgery date: 6+ months; Surgery type: Hyst, ; patient HX: C/O epigastric pain w n/v x 1 week; Additional info: Diffuse abd pain, n/v TECHNIQUE: Imaging protocol: Computed tomography of the abdomen and pelvis with contrast. Radiation optimization: All CT scans at this facility use at least one of these dose optimization techniques: automated exposure control; mA and/or kV adjustment per patient size (includes targeted exams where dose is matched to clinical indication); or iterative reconstruction. Contrast material: OMNI 300; Contrast volume: 95 ml; Contrast route: INTRAVENOUS (IV); COMPARISON: CT Abdomen/Pelvis Renal [id number] 06/20/2017 11:34 PM RADIATION DOSE METRICS: Total DLP (mGy-cm): 1823.25 FINDINGS: Liver: There are innumerable ill-defined hepatic lesions consistent with metastatic disease. Gallbladder and bile ducts: Gallbladder wall is thickened and edematous. Cholelithiasis. Pancreas: Normal. No ductal dilation. Spleen: Normal. No splenomegaly. Adrenal glands: Normal. No mass. Kidneys and ureters: There is wedge-shaped scarring at the inferior pole of the left kidney. 9 mm cyst in the right kidney has benign features. No follow-up is recommended. Stomach and bowel: Unremarkable. No obstruction. No mucosal thickening. Appendix: No evidence of appendicitis. Intraperitoneal space: Unremarkable. No free air. No significant fluid collection. Vasculature: Unremarkable. No abdominal aortic aneurysm. Lymph nodes: Unremarkable. No enlarged lymph nodes. Urinary bladder: Unremarkable as visualized. Reproductive: The uterus is not visualized, consistent with hysterectomy. Bones/joints: Unremarkable. No acute fracture. Soft tissues: There are foci of edema in the subcutaneous soft tissues of the ventral abdomen. CT/CT abdomen pelvis w con* [id number] IMPRESSION: 1. There are innumerable ill-defined hepatic lesions consistent with metastatic disease. 2. Gallbladder wall is thickened and edematous raising concern for cholecystitis. There is cholelithiasis is well. COMMENTS: Consistent with the [employer]'s Incidental Findings Committee white paper (J Am Tres Radiol 2018): Any incidental renal lesion less than 1 cm or classified as too small to characterize, or any incidental cystic renal lesion characterized as simple-appearing, is likely benign. No follow-up imaging is recommended for these lesions per consensus recommendations based on imaging criteria. Radiation Dose CTDIVOL = (mGy): DLP = 1823.25 (mGy-cm)
[2020-11-26] MEDS: sodium chloride 0.9% 1,000 ML 999 ML IV (21:33)
[2020-11-26 21:38] VITALS: BP 150/58; PULSE 104; RESP 18; O2SAT 93
[2020-11-26 21:38] LABS: Basophils # 0.1 10^3/uL (0.0-0.1); Basophils % 0.6 %; Eosinophils # 0.1 10^3/uL (0.0-0.8); Eosinophils % 0.7 %; Hematocrit 39.6 % (37.0-47.0); Hemoglobin 13.7 g/dL (11.5-15.3); Lymphocytes # 1.1 10^3/uL (0.8-4.8); Lymphocytes % 10.7 %; Mean Corpuscular HGB Conc 34.6 g/dL (30.0-36.0); Mean Corpuscular Hemoglobin 28.9 pg (28.0-34.0); Mean Corpuscular Volume 83.5 fl (81-99); Mean Platelet Volume 10.3 fL (7.4-10.4); Monocytes # 0.7 10^3/uL (0.2-0.9); Monocytes % 6.7 %; Neutrophils # 8.34 10^3/uL (1.8-7.7); Neutrophils % 80.7 %; Nucleated Red Blood Cells % 0 %; Platelet Count 307 10^3/cmm (130-400); Red Blood Count 4.74 10^6/uL (4.1-5.3); Red Cell Distribution Width 12.5 % (12.1-15.1); White Blood Count 10.3 10^3/uL (4.0-10.0)
[2020-11-26 22:02] LABS: Alanine Aminotransferase 82 U/L (0-33); Albumin Level 3.5 g/dL (3.5-5.2); Alkaline Phosphatase 555 IU/L (35-105); Anion Gap 14.3 (5-19); Aspartate Amino Transferase 65 U/L (0-32); Blood Urea Nitrogen 10 mg/dL (8-23); Calcium 8.6 mg/dL (8.5-10.5); Carbon Dioxide 23 mmol/L (22-29); Chloride 91 mmol/L (98-107); Globulin 2.8 g/dL (1.3-4.6); Glomerular Filtration Rate 125.9 mL/min (90-130); Glucose 242 mg/dL (65-115); Lipase 117 U/L (13-60); Osmolality Calculated 265 mOsm/kg (285-295); Potassium 4.3 mmol/L (3.5-5.1); Sodium 124 mmol/L (136-145); Total Bilirubin 0.7 mg/dL (0.15-1.2); Total Protein 6.3 g/dL (6.6-8.7)
[2020-11-26 22:03] LABS: Blood Urine 2+ (Negative); Glucose Urine UA 1+ (Normal); Ketones Urine Negative (Negative); Nitrate Urine Negative (Negative); Protein Urine 3+ (Negative); Urine Appearance Clear (CLEAR); Urine Color Yellow (Yellow); pH Urine 5 (5-7)
[2020-11-26 22:04] LABS: Add Urine Microscopic? YES; Bilirubin Urine 1+ (Negative); Leukocyte Esterase Urine Negative (Negative); Urobilinogen Urine 4 mg/dL (Negative)
[2020-11-26 22:23] LABS: Add Urine Culture? No; Bacteria Urine 1+ /hpf; Hyaline Casts Urine 0-4 /lpf; Mucus Urine 1+ /hpf; Squamous Epithelial Cell Urine 15-25 /hpf (0-5); WBC Urine 0-4 /hpf (0-5)
[2020-11-26] MEDS: iohexol 300 mg/mL 100 mL Btl IV (22:30)
[2020-11-26 22:34] VITALS: BP 150/61; PULSE 102; RESP 18; O2SAT 100
[2020-11-27] MEDS: ondansetron 4 MG Tablet PO (00:34)
[2020-11-27] MEDS: HYDROcodone-acetaminophen 5-325 mg Tablet 1 TAB PO (00:34)
[2020-11-27 00:38] VITALS: BP 144/77; PULSE 103; RESP 18; O2SAT 94
--- NOTE | 2020-11-29 11:09 | DCPLANNER ---
manager investment had message to schedule a follow up appointment for patient with Dr. Arteaga. manager [employer] faxed patients information to the office of Dr. Arteaga. Patients information will be reviewed, clinic will call patient with appointment information.
== END 2020-11-27 00:40 | disposition home or self-care (01) ==
PROVIDERS: Emergency Medicine; Emergency Provider Nurse Practitioner Family; PCP Nurse Practitioner Family
DX: R10.11 Right upper quadrant pain (principal); F17.210 Nicotine dependence, cigarettes, uncomplicated
CPT/HCPCS: 74177; 80053; 81001; 83690; 85025; 96360; 99283; J7030; Q0162; Q9967

== ENCOUNTER 2020-12-14 18:19 | Emergency (ER) | payer MEDICAID, SELFPAY ==
[2020-12-14 18:31] VITALS: BP 130/77; PULSE 100; RESP 18; TEMP 36.7; O2SAT 95; BMI 29.5
[2020-12-14 21:16] LABS: Basophils % 0.1 %; Eosinophils % 0.1 %; Hematocrit 37.3 % (37.0-47.0); Hemoglobin 12.8 g/dL (11.5-15.3); Lymphocytes # 0.7 10^3/uL (0.8-4.8); Lymphocytes % 5.5 %; Mean Corpuscular HGB Conc 34.3 g/dL (30.0-36.0); Mean Corpuscular Volume 84.4 fl (81-99); Mean Platelet Volume 9.9 fL (7.4-10.4); Monocytes # 0.6 10^3/uL (0.2-0.9); Monocytes % 5.2 %; Neutrophils # 10.69 10^3/uL (1.8-7.7); Neutrophils % 87.1 %; Nucleated Red Blood Cells # 0.1 /100WBC; Nucleated Red Blood Cells % 0.4 %; Platelet Count 278 10^3/cmm (130-400); Red Blood Count 4.42 10^6/uL (4.1-5.3); Red Cell Distribution Width 14.7 % (12.1-15.1); White Blood Count 12.3 10^3/uL (4.0-10.0)
[2020-12-14 21:29] LABS: Add Urine Microscopic? YES; Bilirubin Urine 2+ (Negative); Blood Urine 2+ (Negative); Glucose Urine UA Norm (Normal); Ketones Urine Negative (Negative); Leukocyte Esterase Urine Trace (Negative); Nitrate Urine Negative (Negative); Protein Urine 3+ (Negative); Specific Gravity, Urine 1.015 (1.005-1.030); Urine Appearance Clear (CLEAR); Urine Color Dark Yellow (Yellow); Urobilinogen Urine 1 mg/dL (Negative); pH Urine 5 (5-7)
[2020-12-14 21:30] LABS: Add Urine Culture? Yes; Bacteria Urine 4+ /hpf; RBC Urine 0-4 /hpf (0-2)
[2020-12-14 21:35] LABS: Lactate (Lactic Acid level) 2.6 mmol/L (0.5-2.2)
[2020-12-14 21:36] LABS: Alanine Aminotransferase 139 U/L (0-33); Alkaline Phosphatase 604 IU/L (35-105); Aspartate Amino Transferase 124 U/L (0-32); Blood Urea Nitrogen 19 mg/dL (8-23); Calcium 8.2 mg/dL (8.5-10.5); Carbon Dioxide 21 mmol/L (22-29); Chloride 98 mmol/L (98-107); Globulin 2.4 g/dL (1.3-4.6); Glucose 113 mg/dL (65-115); Lipase 104 U/L (13-60); Osmolality Calculated 277 mOsm/kg (285-295); Sodium 132 mmol/L (136-145); Total Protein 5.4 g/dL (6.6-8.7)
[2020-12-14 22:30] VITALS: BP 145/76; PULSE 94; RESP 20; TEMP 36.7; O2SAT 95
--- NOTE | 2020-12-14 22:32 | USR_ITS ---
PROCEDURE INFORMATION: Exam: US Abdomen, Limited; Right Upper Quadrant Exam date and time: 12/14/2020 10:32 PM Age: 60 years old Clinical indication: Abdominal pain; Acute; Additional info: Abd pain TECHNIQUE: Imaging protocol: US abdomen. Real time ultrasound with image documentation. Limited exam focused on the right upper quadrant. COMPARISON: CT abdomen pelvis w con* [id number] 11/26/2020 10:27 PM FINDINGS: Liver: Diffusely inhomogenous liver measuring 16.6 cm with numerous subtle nodules. Gallbladder: The gallbladder is contracted with multiple 4-5 mm calculi. The wall thickness measures 5-7 mm. Common bile duct: Normal. No stones. No dilation. Pancreas: Visualized pancreas is unremarkable. Right kidney: Normal. No mass. No hydronephrosis. Intraperitoneal space: No ascites. US/US gall bladder [id number] IMPRESSION: 1. Inhomogenous liver with numerous subtle nodules, consistent with metastatic disease. 2. Contracted gallbladder with multiple small stones and wall thickening. Chronic cholecystitis is not excluded. Radiation Dose CTDIVOL = (mGy): DLP = (mGy-cm)
--- NOTE | 2020-12-14 22:46 | W.ED.ABDPA2 ---
HPI - Abdominal Pain General: Chief Complaint: Abdominal Pain Stated Complaint: sent over from abd pain Time Seen by Provider: 12/14/20 22:31 Source: patient Mode of arrival: ambulatory Limitations: no limitations History of Present Illness: HPI narrative: 60-year-old female states she been having right upper quadrant abdominal pain over the last 3 weeks she seen here and had a CT scan done showed possible lesions in her liver along with gallbladder thickening she states she had increased pain and Dr. Arteaga scented to the ER she is also jaundiced developed the last 2 days and does have scleral icterus she had vomiting denies any diarrhea denies any worsening improving factors. Associated Symptoms: Denies chills, dysuria and fever(s) Review of Systems Const: Denies: fever(s), chills, body aches or change in appetite Eyes: Denies: blurry vision or eye discomfort ENMT: Denies: throat pain or dental pain Card: Denies: chest pain Resp: Denies: dyspnea GI: Reports: abdominal pain : Denies: dysuria Musc: Denies: neck pain or back pain Skin/Breast: Denies: rash Neuro: Denies: headache(s) Psych: Denies: depression Rhett/Lymph: Denies: easy bruising All/Imm: Denies: urticaria PFSH ED PFSH: Medical History (Updated 12/15/20 @ 01:22 by Rosa Maria Hines MD) Agoraphobia with panic disorder Major depressive disorder, recurrent, moderate Nicotine dependence, cigarettes, with other nicotine-induced disorders Social History Smoking and tobacco status: current every day smoker Physical Exam Const: COMMON NORMALS: no acute distress, patient oriented x3 and healthy appearing HENMT: COMMON NORMALS: normocephalic and atraumatic HEAD & SCALP: normocephalic and atraumatic Eye: COMMON NORMALS: Equal, round and reactive pupils present and EOMs intact bilaterally SCLERA: scleral abnormal (icterus) PUPIL: Yes Equal, round and reactive pupils present Neck/C-Spine: COMMON NORMALS: full ROM and supple Chest: COMMONS NORMALS: normal inspection of the chest and normal palpation of entire chest wall Resp: COMMON NORMALS: normal respiratory effort, No retractions, No use of accessory muscles and clear to auscultation bilaterally AUSCULTATION: clear to auscultation bilaterally Cardio: COMMON NORMALS: regular rate, regular rhythm and No murmurs present (Cardio) RATE: regular rate RHYTHM: regular rhythm GI: COMMON NORMALS: Normal to inspection, nondistended, normoactive bowel sounds present, Soft to palpation, non-tender and no masses PALPATION: Yes Soft to palpation and Yes Tenderness to palpation present (GI) Details: RUQ Extremity: COMMON NORMALS: normal to inspection and full ROM Neuro: COMMON NORMALS: patient oriented x3, moves all extremities and no focal motor deficits Psych: COMMON NORMALS: mental status grossly normal, Normal thought process present and cooperative THOUGHT PROCESS: Normal thought process present Skin: COMMON NORMALS: no rashes or lesions noted and no wounds NARRATIVE SKIN EXAM: jaundice GENERAL SKIN EXAM: no rashes or lesions noted Course Vital Signs: Vital signs: Vital Signs Temperature 98.0 F 12/14/20 22:30 Pulse Rate 94 12/14/20 22:30 Respiratory Rate 22 H 12/14/20 23:35 Blood Pressure 145/76 12/14/20 22:30 Pulse Oximetry 96 12/14/20 23:35 MDM - Abdominal Pain MDM Narrative: Medical decision making narrative: Patient presents here with abdominal pain CT scan shows liver mets again she does have an elevated bilirubin compared to 2 weeks ago spoke to surgeon Dr. Ibarra felt patient need high-level care with GI for possible ERCP will transfer to [facility] spoke to physician there patient is in stable here. Lab Data: Labs: Lab Results 12/14/20 12/14/20 12/14/20 21:04 21:04 21:04 WBC 12.3 10^3/uL H 10 ^3/uL (4.0-10.0) RBC 4.42 10^6/uL 10^6 /uL (4.1-5.3) Hgb 12.8 g/dL g/dL (11.5-15.3) Hct 37.3 % % (37.0-47.0) MCV 84.4 fl fl (81-99) MCH 29.0 pg pg (28.0-34.0) MCHC 34.3 g/dL g/dL (30.0-36.0) RDW 14.7 % % (12.1-15.1) Plt Count 278 10^3/cmm 10^3 /cmm (130-400) MPV 9.9 fL fL (7.4-10.4) Neut % (Auto) 87.1 % % Lymph % (Auto) 5.5 % % [place]ack[place] % (Auto) 5.2 % % Eos % (Auto) 0.1 % % Baso % (Auto) 0.1 % % Neut # (Auto) 10.69 10^3/uL H 1 0^3/uL (1.8-7.7) Lymph # (Auto) 0.7 10^3/uL L 10^ 3/uL (0.8-4.8) [place] # (Auto) 0.6 10^3/uL 10^3/ uL (0.2-0.9) Eos # (Auto) 0.0 10^3/uL 10^3/ uL (0.0-0.8) Baso # (Auto) 0.0 10^3/uL 10^3/ uL (0.0-0.1) Nucleated RBC % (a uto) 0.4 % % Nucleated RBCs # 0.1 /100WBC /100W BC Sodium 132 mmol/L L mmol /L (136-145) Potassium 3.0 mmol/L L mmol /L (3.5-5.1) Chloride 98 mmol/L mmol/L (98-107) Carbon Dioxide 21 mmol/L L mmol/ L (22-29) Anion Gap 16.0 (5-19) BUN 19 mg/dL mg/dL (8-23) Creatinine 0.6 mg/dL mg/dL (0.5-0.9) GFR Calculation 102.0 mL/min mL/m in (90-130) Glucose 113 mg/dL mg/dL (65-115) Calculated Osmolal ity 277 mOsm/kg L mOs m/kg (285-295) Lactate 2.6 mmol/L H mmol /L (0.5-2.2) Calcium 8.2 mg/dL L mg/dL (8.5-10.5) Total Bilirubin 5.0 mg/dL H mg/dL (0.15-1.2) AST 124 U/L H U/L (0-32) ALT 139 U/L H U/L (0-33) Alkaline Phosphata se 604 IU/L H IU/L (35-105) Total Protein 5.4 g/dL L g/dL (6.6-8.7) Albumin 3.0 g/dL L g/dL (3.5-5.2) Globulin 2.4 g/dL g/dL (1.3-4.6) Lipase 104 U/L H U/L (13-60) Urine Color Urine Appearance Urine pH Ur Specific Gravit y Urine Protein Urine Glucose (UA) Urine Ketones Urine Blood Urine Nitrate Urine Bilirubin Urine Urobilinogen Ur Leukocyte Susi ase Urine RBC Urine WBC Ur Squamous Epith Cells Amorphous Sediment Urine Bacteria 12/14/20 21:04 WBC RBC Hgb Hct MCV MCH MCHC RDW Plt Count MPV Neut % (Auto) Lymph % (Auto) [place]ack[place] % (Auto) Eos % (Auto) Baso % (Auto) Neut # (Auto) Lymph # (Auto) [place] # (Auto) Eos # (Auto) Baso # (Auto) Nucleated RBC % (a uto) Nucleated RBCs # Sodium Potassium Chloride Carbon Dioxide Anion Gap BUN Creatinine GFR Calculation Glucose Calculated Osmolal ity Lactate Calcium Total Bilirubin AST ALT Alkaline Phosphata se Total Protein Albumin Globulin Lipase Urine Color Dark yellow (Yellow) Urine Appearance Clear (CLEAR) Urine pH 5 (5-7) Ur Specific Gravit y 1.015 (1.005-1.030) Urine Protein 3+ H (Negative) Urine Glucose (UA) Norm (Normal) Urine Ketones Negative (Negative) Urine Blood 2+ H (Negative) Urine Nitrate Negative (Negative) Urine Bilirubin 2+ H (Negative) Urine Urobilinogen 1 mg/dL H mg/dL (Negative) Ur Leukocyte Susi ase Trace H (Negative) Urine RBC 0-4 /hpf H /hpf (0-2) Urine WBC 10-15 /hpf H /hpf (0-5) Ur Squamous Epith Cells 5-10 /hpf H /hpf (0-5) Amorphous Sediment Not Reportable Urine Bacteria 4+ /hpf H /hpf (NONE) Imaging Data ^: US: Attestation: I personally reviewed and interpreted this imaging study as follows: Radiologist's impression: [address] [address] Ultrasound Report Signed Patient: Naima Michel Unit #: [id number] : 1960 Age/Sex: 60 / F ADM Date: 12/14/20 Loc: ER Room/Bed: Attending Dr: Ordering Provider/Ordering MD: Rosa Maria Hines MD Date of Service: 12/14/20 Procedure(s): US gall bladder [id number] Accession Number(s): [id number] Report Number: [id number] PROCEDURE INFORMATION: Exam: US Abdomen, Limited; Right Upper Quadrant Exam date and time: 12/14/2020 10:32 PM Age: 60 years old Clinical indication: Abdominal pain; Acute; Additional info: Abd pain TECHNIQUE: Imaging protocol: US abdomen. Real time ultrasound with image documentation. Limited exam focused on the right upper quadrant. COMPARISON: CT abdomen pelvis w con* [id number] 11/26/2020 10:27 PM FINDINGS: Liver: Diffusely inhomogenous liver measuring 16.6 cm with numerous subtle nodules. Gallbladder: The gallbladder is contracted with multiple 4-5 mm calculi. The wall thickness measures 5-7 mm. Common bile duct: Normal. No stones. No dilation. Pancreas: Visualized pancreas is unremarkable. Right kidney: Normal. No mass. No hydronephrosis. Intraperitoneal space: No ascites. US/US gall bladder [id number] IMPRESSION: 1. Inhomogenous liver with numerous subtle nodules, consistent with metastatic disease. 2. Contracted gallbladder with multiple small stones and wall thickening. Chronic cholecystitis is not excluded. Radiation Dose CTDIVOL = (mGy): DLP = (mGy-cm) Dictated By: Johnie Chakraborty Signed By: Johnie Chakraborty Signed Date/Time: 12/14/20 2340 DD/ 31 CT Abd/Pel: Attestation: I personally reviewed and interpreted this imaging study as follows: Radiologist's impression: [address] [address] [address] Scan Report Signed Patient: Naima Michel Unit #: [id number] : 1960 Age/Sex: 60 / F ADM Date: 12/14/20 Loc: ER Room/Bed: Attending Dr: Ordering Provider/Ordering MD: Rosa Maria Hines MD Date of Service: 12/14/20 Procedure(s): CT abdomen pelvis w con* [id number] Accession Number(s): [id number] Report Number: [id number] PROCEDURE INFORMATION: Exam: CT Abdomen And Pelvis With Contrast Exam date and time: 12/14/2020 11:15 PM Age: 60 years old Clinical indication: Constipation; Abdominal pain; Localized; Right; Prior surgery; Surgery type: Hyst; Additional info: RT sided abd pain x 3 weeks. Constipated TECHNIQUE: Imaging protocol: Computed tomography of the abdomen and pelvis with contrast. Radiation optimization: All CT scans at this facility use at least one of these dose optimization techniques: automated exposure control; mA and/or kV adjustment per patient size (includes targeted exams where dose is matched to clinical indication); or iterative reconstruction. Contrast material: OMNI 300; Contrast volume: 95 ml; Contrast route: INTRAVENOUS (IV); COMPARISON: CT abdomen pelvis w con* [id number] 11/26/2020 10:27 PM RADIATION DOSE METRICS: Total DLP (mGy-cm): 1809.38 FINDINGS: Liver: Numerous low-density nodules scattered throughout the liver measuring up to 2.2 cm. These are unchanged. Gallbladder and bile ducts: Contracted gallbladder containing tiny gallstones. Pancreas: Normal. No ductal dilation. Spleen: Normal. No splenomegaly. Adrenal glands: Normal. No mass. Kidneys and ureters: Fluid density cyst in the right kidney, Hounsfield units less than 20. No follow-up imaging recommended. The kidneys are otherwise unremarkable. No renal calculi or obstructive uropathy. Stomach and bowel: Nonspecific mild submucosal fatty deposition in the terminal ileum and proximal colon. The stomach, small bowel, and colon are otherwise unremarkable. Appendix: The appendix is not visualized. No secondary signs of appendicitis. Intraperitoneal space: Unremarkable. No free air. No significant fluid collection. Vasculature: Arterial calcifications. No aneurysm. Lymph nodes: Unremarkable. No enlarged lymph nodes. Urinary bladder: Unremarkable as visualized. Reproductive: The uterus and ovaries are absent. Bones/joints: Unremarkable. No acute fracture. Soft tissues: Mild stranding in the anterior abdominal wall is most likely medication injection sites. Mild body wall edema. CT/CT abdomen pelvis w con* [id number] IMPRESSION: 1. No acute abnormality identified in the abdomen or pelvis. 2. Stable severe hepatic metastatic disease. 3. Cholelithiasis with contracted gallbladder. COMMENTS: Consistent with the [employer]'s Incidental Findings Committee white paper (J Am Tres Radiol 2018): Any incidental renal lesion less than 1 cm or classified as too small to characterize, or any incidental cystic renal lesion characterized as simple-appearing, is likely benign. No follow-up imaging is recommended for these lesions per consensus recommendations based on imaging criteria. Radiation Dose CTDIVOL = (mGy): DLP = 1809.38 (mGy-cm) Dictated By: Johnie Chakraborty Signed By: Johnie Chakraborty Signed Date/Time: 12/14/20 9708 DD/ 9611 Discharge Plan Discharge Patient Disposition: Xfer Short-Term Hosp Clinical Impression: Abdominal pain, Elevated bilirubin, Metastatic cancer to liver Condition: Stable Referrals: Nidia Reynolds NP [Primary Care Provider] - Patient Instructions: Abdominal Pain (ED) Coding Level of Care Code ED Fruit Grader for Chg Fwd Exam Comprehensive
[2020-12-14] MEDS: ondansetron 2 mg/ML SDV 2 mL 4 MG IVP (22:50)
[2020-12-14] MEDS: sodium chloride 0.9% 1,000 ML 999 ML IV (22:50)
[2020-12-14 22:51] VITALS: RESP 22; O2SAT 95
[2020-12-14] MEDS: morphine 4 mg/mL SDV 1 mL IVP (22:51)
--- NOTE | 2020-12-14 23:15 | CTR_ITS ---
PROCEDURE INFORMATION: Exam: CT Abdomen And Pelvis With Contrast Exam date and time: 12/14/2020 11:15 PM Age: 60 years old Clinical indication: Constipation; Abdominal pain; Localized; Right; Prior surgery; Surgery type: Hyst; Additional info: RT sided abd pain x 3 weeks. Constipated TECHNIQUE: Imaging protocol: Computed tomography of the abdomen and pelvis with contrast. Radiation optimization: All CT scans at this facility use at least one of these dose optimization techniques: automated exposure control; mA and/or kV adjustment per patient size (includes targeted exams where dose is matched to clinical indication); or iterative reconstruction. Contrast material: OMNI 300; Contrast volume: 95 ml; Contrast route: INTRAVENOUS (IV); COMPARISON: CT abdomen pelvis w con* [id number] 11/26/2020 10:27 PM RADIATION DOSE METRICS: Total DLP (mGy-cm): 1809.38 FINDINGS: Liver: Numerous low-density nodules scattered throughout the liver measuring up to 2.2 cm. These are unchanged. Gallbladder and bile ducts: Contracted gallbladder containing tiny gallstones. Pancreas: Normal. No ductal dilation. Spleen: Normal. No splenomegaly. Adrenal glands: Normal. No mass. Kidneys and ureters: Fluid density cyst in the right kidney, Hounsfield units less than 20. No follow-up imaging recommended. The kidneys are otherwise unremarkable. No renal calculi or obstructive uropathy. Stomach and bowel: Nonspecific mild submucosal fatty deposition in the terminal ileum and proximal colon. The stomach, small bowel, and colon are otherwise unremarkable. Appendix: The appendix is not visualized. No secondary signs of appendicitis. Intraperitoneal space: Unremarkable. No free air. No significant fluid collection. Vasculature: Arterial calcifications. No aneurysm. Lymph nodes: Unremarkable. No enlarged lymph nodes. Urinary bladder: Unremarkable as visualized. Reproductive: The uterus and ovaries are absent. Bones/joints: Unremarkable. No acute fracture. Soft tissues: Mild stranding in the anterior abdominal wall is most likely medication injection sites. Mild body wall edema. CT/CT abdomen pelvis w con* [id number] IMPRESSION: 1. No acute abnormality identified in the abdomen or pelvis. 2. Stable severe hepatic metastatic disease. 3. Cholelithiasis with contracted gallbladder. COMMENTS: Consistent with the [employer] [employer]'s Incidental Findings Committee white paper (J Am Tres Radiol 2018): Any incidental renal lesion less than 1 cm or classified as too small to characterize, or any incidental cystic renal lesion characterized as simple-appearing, is likely benign. No follow-up imaging is recommended for these lesions per consensus recommendations based on imaging criteria. Radiation Dose CTDIVOL = (mGy): DLP = 1809.38 (mGy-cm)
[2020-12-14 23:35] VITALS: RESP 22; O2SAT 96
[2020-12-14] MEDS: iohexol 300 mg/mL 100 mL Btl IV (23:35)
[2020-12-14] MEDS: HYDROmorphone 1 mg/mL INJ 1 mL IVP (23:35)
[2020-12-15 00:30] VITALS: BP 139/82; PULSE 91; RESP 18; O2SAT 95
[2020-12-15 02:19] VITALS: BP 144/81; PULSE 82; RESP 18; O2SAT 95
[2020-12-15 03:39] LABS: Hepatitis A Antibody IgM Non-Reactive (Nonreactive); Hepatitis B Core AB, Total Non-Reactive (Nonreactive); Hepatitis B Surface AB 6.4 (11.5-1000); Hepatitis B Surface Antigen Non-Reactive (Nonreactive); Hepatitis C Virus Antibody Non-Reactive (Nonreactive)
[2020-12-15 03:40] VITALS: BP 133/77; PULSE 85; RESP 20; O2SAT 98
[2020-12-15] MEDS: HYDROmorphone 1 mg/mL INJ 1 mL IVP (04:34)
== END 2020-12-15 04:30 | disposition short-term general hospital (02) ==
PROVIDERS: Emergency Provider Emergency Medicine; PCP Nurse Practitioner Family
DX: R10.11 Right upper quadrant pain (principal); E80.7 Disorder of bilirubin metabolism, unspecified; F17.210 Nicotine dependence, cigarettes, uncomplicated; C78.7 Secondary malignant neoplasm of liver and intrahepatic bile duct; K80.20 Calculus of gallbladder without cholecystitis without obstruction
CPT/HCPCS: 74177; 76705; 80053; 81001; 83605; 83690; 85025; 86705; 86706; 86709; 86803; 87077; 87086; 87186; 87340; 96361; 96374; 96375; 96376; 99284; J1170; J2270; J2405; J7030; Q9967

== ENCOUNTER 2020-12-24 16:48 | Emergency (ER) | payer MEDICAID, SELFPAY ==
--- NOTE | 2020-12-24 17:29 | ED_ITS ---
Documented by User: AUGUSTA Mccord 12/25/20 00:17 HPI - General Adult General: Chief complaint: Shortness of Breath/Dyspnea Stated complaint: HYPERGLYCEMIA Time Seen by Provider: 12/24/20 17:29 History of Present Illness: HPI narrative: 60-year-old female comes in today with complaints of increased blood sugar and increasing weakness. Patient has a history of breast cancer and now metastatic disease to the liver. Patient was recently transported to [facility] and had a biopsy done on her liver for further evaluation. She states that she has not received any information from the biopsy. Patient is a patient of Dr. Denson for the treatment of her cancer metastatic disease. Patient states that she is just been declining having worsening weakness and now her blood sugars poorly controlled. Review of Systems General: Reports: 10 or more systems reviewed and unremarkable except in HPI and below Const: Reports: other (Weakness) Skin/Breast: Reports: other (Jaundice, swelling in the hands and feet.) Endo: Reports: other (Elevated blood sugar) [facility] ED PFSH: Medical History (Updated 12/23/20 @ 00:01 by ) Agoraphobia with panic disorder Major depressive disorder, recurrent, moderate Nicotine dependence, cigarettes, with other nicotine-induced disorders Social History Smoking and tobacco status: current every day smoker Physical Exam Const: COMMON NORMALS: no acute distress and patient oriented x3 GENERAL APPEARANCE: cooperative HENMT: COMMON NORMALS: normocephalic and Normal external nose present HEAD & SCALP: normal to inspection and normocephalic NOSE: Normal external nose present MOUTH: Normal oral and palatal mucosa present Eye: SCLERA: scleral abnormal Laterality of scleral abnormality: positive bilateral scleral icterus Neck/C-Spine: COMMON NORMALS: full ROM Lymph: LYMPHATIC: no lymphadenopathy noted Chest: COMMONS NORMALS: normal inspection of the chest Resp: COMMON NORMALS: normal respiratory effort EFFORT & INSPECTION: Yes able to speak in complete sentences Cardio: COMMON NORMALS: regular rate and regular rhythm RATE: regular rate RHYTHM: regular rhythm GI: COMMON NORMALS: Soft to palpation and non-tender AUSCULTATION: Yes normoactive bowel sounds PALPATION: Yes Soft to palpation and Yes Hepatomegaly present : COMMON NORMALS: Yes no CVA tenderness BLADDER/KIDNEY EXAM: Yes no CVA tenderness Back/Pelvis: COMMON NORMALS: no CVA tenderness and thoracic and lumbar spine normal to inspection Extremity: COMMON NORMALS: normal to inspection Neuro: COMMON NORMALS: patient oriented x3 and moves all extremities Psych: COMMON NORMALS: mental status grossly normal and cooperative Skin: NARRATIVE SKIN EXAM: Sclera is yellow old, patient has significant jaundice. Course ED course: 1939, reviewed patient with Dr. Ramirez regarding her elevated bilirubin at 7.6, and blood glucose of 540. Patient needs to be admitted for correction of the bilirubin and further evaluation and treatment. Vital Signs: Vital signs: Vital Signs Temperature 97.8 F 12/24/20 17:46 Pulse Rate 94 12/25/20 06:20 Respiratory Rate 20 H 12/25/20 06:20 Blood Pressure 127/69 12/25/20 06:20 Pulse Oximetry 95 12/25/20 06:20 MDM - General Adult MDM Narrative: Medical decision making narrative: 60-year-old female comes in today for increasing weakness and abdominal discomfort. Patient has metastatic disease to the liver. Patient has been evaluated for gallbladder disease in the last 10 days but it was noted that patient had metastasis to the liver. Patient's oncologist is Dr. Martinez. Patient came in today due to increasing weakness and swelling and decreased appetite. Differential diagnosis includes but not limited to dehydration, metastatic liver disease, diabetic ketoacidosis. Blood glucose was 540, sodium was 130, potassium was 5.4, is noted that patient's hemoglobin has dropped to 10 and 33. Bilirubin was 7.6. Ammonia was 43. Lipase was 121. Patient was in hyperbilirubinemia, reviewed this with Dr. Ramirez who agreed to have patient be admitted to the hospital for further treatment. Lab Data: Labs: Lab Results 12/24/20 12/24/20 12/24/20 18:43 18:43 18:43 WBC 7.2 10^3/uL 10^3/ uL (4.0-10.0) RBC 3.73 10^6/uL L 10 ^6/uL (4.1-5.3) Hgb 10.9 g/dL L g/dL (11.5-15.3) Hct 33.3 % L % (37.0-47.0) MCV 89.3 fl fl (81-99) MCH 29.2 pg pg (28.0-34.0) MCHC 32.7 g/dL g/dL (30.0-36.0) RDW 18.7 % H % (12.1-15.1) Plt Count 168 10^3/cmm 10^3 /cmm (130-400) MPV 11.3 fL H fL (7.4-10.4) Neut % (Auto) 89.9 % % Lymph % (Auto) 5.5 % % Archer % (Auto) 3.8 % % Eos % (Auto) 0.0 % % Baso % (Auto) 0.1 % % Neut # (Auto) 6.43 10^3/uL 10^3 /uL (1.8-7.7) Lymph # (Auto) 0.4 10^3/uL L 10^ 3/uL (0.8-4.8) Archer # (Auto) 0.3 10^3/uL 10^3/ uL (0.2-0.9) Eos # (Auto) 0.0 10^3/uL 10^3/ uL (0.0-0.8) Baso # (Auto) 0.0 10^3/uL 10^3/ uL (0.0-0.1) Nucleated RBC % (a uto) 1.3 % % Nucleated RBCs # 0.1 /100WBC /100W BC Specimen Type Sample Site ABG pH ABG pCO2 ABG pO2 ABG HCO3 ABG Base Excess Eliazar Test Hematocrit O2 Delivery Device FiO2 Specimen Drawn By Sodium 130 mmol/L L mmol /L (136-145) Potassium 5.4 mmol/L H mmol /L (3.5-5.1) Chloride 94 mmol/L L mmol/ L (98-107) Carbon Dioxide 18 mmol/L L mmol/ L (22-29) Anion Gap 23.4 H (5-19) BUN 37 mg/dL H mg/dL (8-23) Creatinine 0.7 mg/dL mg/dL (0.5-0.9) GFR Calculation 85.4 mL/min L mL/ min (90-130) Glucose 540 mg/dL H* mg/d L (65-115) POC Glucose Calculated Osmolal ity 303 mOsm/kg H mOs m/kg (285-295) Calcium 7.8 mg/dL L mg/dL (8.5-10.5) Total Bilirubin 7.6 mg/dL H* mg/d L (0.15-1.2) AST 156 U/L H U/L (0-32) ALT 123 U/L H U/L (0-33) Alkaline Phosphata se 522 IU/L H IU/L (35-105) Ammonia Total Protein 4.8 g/dL L g/dL (6.6-8.7) Albumin 2.1 g/dL L g/dL (3.5-5.2) Globulin 2.7 g/dL g/dL (1.3-4.6) Lipase 121 U/L H U/L (13-60) Urine Color Urine Appearance Urine pH Ur Specific Gravit y Urine Protein Urine Glucose (UA) Urine Ketones Urine Blood Urine Nitrate Urine Bilirubin Urine Urobilinogen Ur Leukocyte Susi ase Urine RBC Urine WBC Ur Squamous Epith Cells Amorphous Sediment Urine Bacteria Urine Mucus Serum Ketones Negative (Negative) 12/24/20 12/24/20 12/24/20 18:43 20:45 22:01 WBC RBC Hgb Hct MCV MCH MCHC RDW Plt Count MPV Neut % (Auto) Lymph % (Auto) Archer % (Auto) Eos % (Auto) Baso % (Auto) Neut # (Auto) Lymph # (Auto) Archer # (Auto) Eos # (Auto) Baso # (Auto) Nucleated RBC % (a uto) Nucleated RBCs # Specimen Type Art Sample Site Lrad ABG pH 7.34 L (7.35-7.45) ABG pCO2 31.2 mmHg L mmHg (35-45) ABG pO2 68.5 mmHg L mmHg (80.0-100.0) ABG HCO3 16.8 mmol/L L mmo l/L (22-26) ABG Base Excess -7.9 mmol/L L mmo l/L (-2.0-2.0) Eliazar Test Pos Hematocrit 34.4 % L % (37-47) O2 Delivery Device Ra FiO2 21.0 % % Specimen Drawn By Ellpe Sodium Potassium Chloride Carbon Dioxide Anion Gap BUN Creatinine GFR Calculation Glucose POC Glucose 487 mg/dL H mg/dL (70-110) Calculated Osmolal ity Calcium Total Bilirubin AST ALT Alkaline Phosphata se Ammonia 43 umol/L umol/L (11-51) Total Protein Albumin Globulin Lipase Urine Color Urine Appearance Urine pH Ur Specific Gravit y Urine Protein Urine Glucose (UA) Urine Ketones Urine Blood Urine Nitrate Urine Bilirubin Urine Urobilinogen Ur Leukocyte Susi ase Urine RBC Urine WBC Ur Squamous Epith Cells Amorphous Sediment Urine Bacteria Urine Mucus Serum Ketones 12/25/20 12/25/20 12/25/20 00:49 03:17 04:49 WBC RBC Hgb Hct MCV MCH MCHC RDW Plt Count MPV Neut % (Auto) Lymph % (Auto) Archer % (Auto) Eos % (Auto) Baso % (Auto) Neut # (Auto) Lymph # (Auto) Archer # (Auto) Eos # (Auto) Baso # (Auto) Nucleated RBC % (a uto) Nucleated RBCs # Specimen Type Sample Site ABG pH ABG pCO2 ABG pO2 ABG HCO3 ABG Base Excess Eliazar Test Hematocrit O2 Delivery Device FiO2 Specimen Drawn By Sodium Potassium Chloride Carbon Dioxide Anion Gap BUN Creatinine GFR Calculation Glucose POC Glucose 512 mg/dL H* mg/d L 462 mg/dL H mg/dL 415 mg/dL H mg/dL (70-110) (70-110) (70-110) Calculated Osmolal ity Calcium Total Bilirubin AST ALT Alkaline Phosphata se Ammonia Total Protein Albumin Globulin Lipase Urine Color Urine Appearance Urine pH Ur Specific Gravit y Urine Protein Urine Glucose (UA) Urine Ketones Urine Blood Urine Nitrate Urine Bilirubin Urine Urobilinogen Ur Leukocyte Susi ase Urine RBC Urine WBC Ur Squamous Epith Cells Amorphous Sediment Urine Bacteria Urine Mucus Serum Ketones 12/25/20 12/25/20 05:50 06:40 WBC RBC Hgb Hct MCV MCH MCHC RDW Plt Count MPV Neut % (Auto) Lymph % (Auto) Archer % (Auto) Eos % (Auto) Baso % (Auto) Neut # (Auto) Lymph # (Auto) Archer # (Auto) Eos # (Auto) Baso # (Auto) Nucleated RBC % (a uto) Nucleated RBCs # Specimen Type Sample Site ABG pH ABG pCO2 ABG pO2 ABG HCO3 ABG Base Excess Eliazar Test Hematocrit O2 Delivery Device FiO2 Specimen Drawn By Sodium Potassium Chloride Carbon Dioxide Anion Gap BUN Creatinine GFR Calculation Glucose POC Glucose 386 mg/dL H mg/dL (70-110) Calculated Osmolal ity Calcium Total Bilirubin AST ALT Alkaline Phosphata se Ammonia Total Protein Albumin Globulin Lipase Urine Color Dark yellow (Yellow) Urine Appearance Cloudy (CLEAR) Urine pH 5 (5-7) Ur Specific Gravit y 1.020 (1.005-1.030) Urine Protein 1+ H (Negative) Urine Glucose (UA) 2+ H (Normal) Urine Ketones Negative (Negative) Urine Blood 2+ H (Negative) Urine Nitrate Negative (Negative) Urine Bilirubin 2+ H (Negative) Urine Urobilinogen 4 mg/dL H mg/dL (Negative) Ur Leukocyte Susi ase Trace H (Negative) Urine RBC 5-10 /hpf H /hpf (0-2) Urine WBC 15-25 /hpf H /hpf (0-5) Ur Squamous Epith Cells 5-10 /hpf H /hpf (0-5) Amorphous Sediment Not Reportable Urine Bacteria 4+ /hpf H /hpf (NONE) Urine Mucus 1+ /hpf /hpf Serum Ketones EKG Data^: EKG 1: Attestation: I personally reviewed and interpreted this EKG as follows: (1739, EKG shows a sinus tach with a regular rate at [address] elevation is noted, no ectopy is noted. Prior exam is not available for comparison at this time.) Computer generated interpretation: Chest X-Ray 12/24/20 17:40 IMPRESSION: No evidence for acute cardiopulmonary disease. Radiation Dose CTDIVOL = (mGy): DLP = (mGy-cm) Gallbladder Ultrasound 12/24/20 20:39 IMPRESSION: 1. Hepatomegaly. Liver is inhomogeneous. 2. Gallbladder is contracted and contains stones. There is gallbladder wall thickening measuring 6.6 mm. Findings raise concern for cholecystitis. Radiation Dose CTDIVOL = (mGy): DLP = (mGy-cm) Discharge Plan Discharge Prescriptions: No Action desvenlafaxine succinate [Pristiq] 100 mg tablet extended release 24 hr 100 mg PO DAILY Qty: 30 RF: 2 clonazepam [Klonopin] 0.5 mg tablet 0.5 mg PO BID PRN (Reason: anxiety) Qty: 58 RF: 2 Victoza 2-Lakhwinder 0.6 mg/0.1 mL (18 mg/3 mL) pen injector 0.6 mg SUBCUT DAILY RF: 0 ondansetron 4 mg tablet,disintegrating 4 mg PO Q8H PRN (Reason: nausea and vomiting) Qty: 7 RF: 0 hydrocodone-acetaminophen 5-325 mg tablet 1 tab PO QID PRN (Reason: pain) Qty: 12 RF: 0 cyclobenzaprine 10 mg tablet 10 mg PO TID PRN (Reason: muscle spasm) Qty: 30 RF: 0 naproxen 500 mg tablet 500 mg PO BID PRN (Reason: pain) Qty: 20 RF: 0 Discharge Orders: Transfer Out of Facility (Order); Ordered 12/25/20 Ordered By: Nicola Reyes Sign Out Sign Out Data: Patient Sign Out occurred on 12/25/20 at 06:25. Patient's care was discussed, and care was transferred from to Nicola Reyes MD. Coding Level of Care Code ED Manager Of Health for Chg Fwd Exam Comprehensive Documented by User: Cleveland Ramirez, 12/25/20 06:04 HPI - General Adult General: Chief complaint: Shortness of Breath/Dyspnea Stated complaint: HYPERGLYCEMIA Time Seen by Provider: 12/24/20 17:29 [facility] ED PFSH: Medical History (Updated 12/23/20 @ 00:01 by ) Agoraphobia with panic disorder Major depressive disorder, recurrent, moderate Nicotine dependence, cigarettes, with other nicotine-induced disorders Social History Smoking and tobacco status: current every day smoker Course Vital Signs: Vital signs: Vital Signs Temperature 97.8 F 12/24/20 17:46 Pulse Rate 94 12/25/20 06:20 Respiratory Rate 20 H 12/25/20 06:20 Blood Pressure 127/69 12/25/20 06:20 Pulse Oximetry 95 12/25/20 06:20 MDM - General Adult MDM Narrative: Medical decision making narrative: 60-year-old female originally evaluated by AUGUSTA Turner. I agree with his history, evaluation, and treatment. This lady has metastatic breast cancer to the liver. She had a liver biopsy with unknown results at an outside facility last week. Her bilirubin increased from 5-7.6 is concerning as is her blood sugar elevation. She is not ketotic. Minimal anion gap of 23. She was given an IV bolus of insulin with some improvement in her sugar, along with 2 L of fluid. Her saturations are mildly low, so we did not want to fluid overload her. She has been given another bolus of 10 of insulin along with 30 units of Levemir now. We will keep a close eye on her sugars overnight. I spoke with gastroenterology at [facility] given the concerning further elevation of her bilirubin to 7.6 gallbladder ultrasound here shows still no common bile duct dilatation, only metastasis and enlarged liver. They are concerned as well at the bilirubin elevation. They will take in transfer, however there are no beds available tonight. Expect to have beds available in the morning. We are on the list for that. Blood sugar now 386. Repeating CMP in 1 hour at 7am to check potassium, bicarbonate, and bilirubin. Placing her on every 4 hour blood glucose with sliding scale insulin. Still waiting on a bed at [facility] in [place]. Patient is checked out to Dr. Reyes in the ER until such time as she can be transferred. Lab Data: Labs: Lab Results 12/24/20 12/24/20 12/24/20 18:43 18:43 18:43 WBC 7.2 10^3/uL 10^3/ uL (4.0-10.0) RBC 3.73 10^6/uL L 10 ^6/uL (4.1-5.3) Hgb 10.9 g/dL L g/dL (11.5-15.3) Hct 33.3 % L % (37.0-47.0) MCV 89.3 fl fl (81-99) MCH 29.2 pg pg (28.0-34.0) MCHC 32.7 g/dL g/dL (30.0-36.0) RDW 18.7 % H % (12.1-15.1) Plt Count 168 10^3/cmm 10^3 /cmm (130-400) MPV 11.3 fL H fL (7.4-10.4) Neut % (Auto) 89.9 % % Lymph % (Auto) 5.5 % % Archer % (Auto) 3.8 % % Eos % (Auto) 0.0 % % Baso % (Auto) 0.1 % % Neut # (Auto) 6.43 10^3/uL 10^3 /uL (1.8-7.7) Lymph # (Auto) 0.4 10^3/uL L 10^ 3/uL (0.8-4.8) Archer # (Auto) 0.3 10^3/uL 10^3/ uL (0.2-0.9) Eos # (Auto) 0.0 10^3/uL 10^3/ uL (0.0-0.8) Baso # (Auto) 0.0 10^3/uL 10^3/ uL (0.0-0.1) Nucleated RBC % (a uto) 1.3 % % Nucleated RBCs # 0.1 /100WBC /100W BC Specimen Type Sample Site ABG pH ABG pCO2 ABG pO2 ABG HCO3 ABG Base Excess Eliazar Test Hematocrit O2 Delivery Device FiO2 Specimen Drawn By Sodium 130 mmol/L L mmol /L (136-145) Potassium 5.4 mmol/L H mmol /L (3.5-5.1) Chloride 94 mmol/L L mmol/ L (98-107) Carbon Dioxide 18 mmol/L L mmol/ L (22-29) Anion Gap 23.4 H (5-19) BUN 37 mg/dL H mg/dL (8-23) Creatinine 0.7 mg/dL mg/dL (0.5-0.9) GFR Calculation 85.4 mL/min L mL/ min (90-130) Glucose 540 mg/dL H* mg/d L (65-115) POC Glucose Calculated Osmolal ity 303 mOsm/kg H mOs m/kg (285-295) Calcium 7.8 mg/dL L mg/dL (8.5-10.5) Total Bilirubin 7.6 mg/dL H* mg/d L (0.15-1.2) AST 156 U/L H U/L (0-32) ALT 123 U/L H U/L (0-33) Alkaline Phosphata se 522 IU/L H IU/L (35-105) Ammonia Total Protein 4.8 g/dL L g/dL (6.6-8.7) Albumin 2.1 g/dL L g/dL (3.5-5.2) Globulin 2.7 g/dL g/dL (1.3-4.6) Lipase 121 U/L H U/L (13-60) Urine Color Urine Appearance Urine pH Ur Specific Gravit y Urine Protein Urine Glucose (UA) Urine Ketones Urine Blood Urine Nitrate Urine Bilirubin Urine Urobilinogen Ur Leukocyte Susi ase Urine RBC Urine WBC Ur Squamous Epith Cells Amorphous Sediment Urine Bacteria Urine Mucus Serum Ketones Negative (Negative) 12/24/20 12/24/20 12/24/20 18:43 20:45 22:01 WBC RBC Hgb Hct MCV MCH MCHC RDW Plt Count MPV Neut % (Auto) Lymph % (Auto) Archer % (Auto) Eos % (Auto) Baso % (Auto) Neut # (Auto) Lymph # (Auto) Archer # (Auto) Eos # (Auto) Baso # (Auto) Nucleated RBC % (a uto) Nucleated RBCs # Specimen Type Art Sample Site Lrad ABG pH 7.34 L (7.35-7.45) ABG pCO2 31.2 mmHg L mmHg (35-45) ABG pO2 68.5 mmHg L mmHg (80.0-100.0) ABG HCO3 16.8 mmol/L L mmo l/L (22-26) ABG Base Excess -7.9 mmol/L L mmo l/L (-2.0-2.0) Eliazar Test Pos Hematocrit 34.4 % L % (37-47) O2 Delivery Device Ra FiO2 21.0 % % Specimen Drawn By Ellpe Sodium Potassium Chloride Carbon Dioxide Anion Gap BUN Creatinine GFR Calculation Glucose POC Glucose 487 mg/dL H mg/dL (70-110) Calculated Osmolal ity Calcium Total Bilirubin AST ALT Alkaline Phosphata se Ammonia 43 umol/L umol/L (11-51) Total Protein Albumin Globulin Lipase Urine Color Urine Appearance Urine pH Ur Specific Gravit y Urine Protein Urine Glucose (UA) Urine Ketones Urine Blood Urine Nitrate Urine Bilirubin Urine Urobilinogen Ur Leukocyte Susi ase Urine RBC Urine WBC Ur Squamous Epith Cells Amorphous Sediment Urine Bacteria Urine Mucus Serum Ketones 12/25/20 12/25/20 12/25/20 00:49 03:17 04:49 WBC RBC Hgb Hct MCV MCH MCHC RDW Plt Count MPV Neut % (Auto) Lymph % (Auto) Archer % (Auto) Eos % (Auto) Baso % (Auto) Neut # (Auto) Lymph # (Auto) Archer # (Auto) Eos # (Auto) Baso # (Auto) Nucleated RBC % (a uto) Nucleated RBCs # Specimen Type Sample Site ABG pH ABG pCO2 ABG pO2 ABG HCO3 ABG Base Excess Eliazar Test Hematocrit O2 Delivery Device FiO2 Specimen Drawn By Sodium Potassium Chloride Carbon Dioxide Anion Gap BUN Creatinine GFR Calculation Glucose POC Glucose 512 mg/dL H* mg/d L 462 mg/dL H mg/dL 415 mg/dL H mg/dL (70-110) (70-110) (70-110) Calculated Osmolal ity Calcium Total Bilirubin AST ALT Alkaline Phosphata se Ammonia Total Protein Albumin Globulin Lipase Urine Color Urine Appearance Urine pH Ur Specific Gravit y Urine Protein Urine Glucose (UA) Urine Ketones Urine Blood Urine Nitrate Urine Bilirubin Urine Urobilinogen Ur Leukocyte Susi ase Urine RBC Urine WBC Ur Squamous Epith Cells Amorphous Sediment Urine Bacteria Urine Mucus Serum Ketones 12/25/20 12/25/20 05:50 06:40 WBC RBC Hgb Hct MCV MCH MCHC RDW Plt Count MPV Neut % (Auto) Lymph % (Auto) Archer % (Auto) Eos % (Auto) Baso % (Auto) Neut # (Auto) Lymph # (Auto) Archer # (Auto) Eos # (Auto) Baso # (Auto) Nucleated RBC % (a uto) Nucleated RBCs # Specimen Type Sample Site ABG pH ABG pCO2 ABG pO2 ABG HCO3 ABG Base Excess Eliazar Test Hematocrit O2 Delivery Device FiO2 Specimen Drawn By Sodium Potassium Chloride Carbon Dioxide Anion Gap BUN Creatinine GFR Calculation Glucose POC Glucose 386 mg/dL H mg/dL (70-110) Calculated Osmolal ity Calcium Total Bilirubin AST ALT Alkaline Phosphata se Ammonia Total Protein Albumin Globulin Lipase Urine Color Dark yellow (Yellow) Urine Appearance Cloudy (CLEAR) Urine pH 5 (5-7) Ur Specific Gravit y 1.020 (1.005-1.030) Urine Protein 1+ H (Negative) Urine Glucose (UA) 2+ H (Normal) Urine Ketones Negative (Negative) Urine Blood 2+ H (Negative) Urine Nitrate Negative (Negative) Urine Bilirubin 2+ H (Negative) Urine Urobilinogen 4 mg/dL H mg/dL (Negative) Ur Leukocyte Susi ase Trace H (Negative) Urine RBC 5-10 /hpf H /hpf (0-2) Urine WBC 15-25 /hpf H /hpf (0-5) Ur Squamous Epith Cells 5-10 /hpf H /hpf (0-5) Amorphous Sediment Not Reportable Urine Bacteria 4+ /hpf H /hpf (NONE) Urine Mucus 1+ /hpf /hpf Serum Ketones EKG Data^: EKG 1: Computer generated interpretation: Chest X-Ray 12/24/20 17:40 IMPRESSION: No evidence for acute cardiopulmonary disease. Radiation Dose CTDIVOL = (mGy): DLP = (mGy-cm) Gallbladder Ultrasound 12/24/20 20:39 IMPRESSION: 1. Hepatomegaly. Liver is inhomogeneous. 2. Gallbladder is contracted and contains stones. There is gallbladder wall thickening measuring 6.6 mm. Findings raise concern for cholecystitis. Radiation Dose CTDIVOL = (mGy): DLP = (mGy-cm) Discharge Plan Discharge Prescriptions: No Action desvenlafaxine succinate [Pristiq] 100 mg tablet extended release 24 hr 100 mg PO DAILY Qty: 30 RF: 2 clonazepam [Klonopin] 0.5 mg tablet 0.5 mg PO BID PRN (Reason: anxiety) Qty: 58 RF: 2 Victoza 2-Lakhwinder 0.6 mg/0.1 mL (18 mg/3 mL) pen injector 0.6 mg SUBCUT DAILY RF: 0 ondansetron 4 mg tablet,disintegrating 4 mg PO Q8H PRN (Reason: nausea and vomiting) Qty: 7 RF: 0 hydrocodone-acetaminophen 5-325 mg tablet 1 tab PO QID PRN (Reason: pain) Qty: 12 RF: 0 cyclobenzaprine 10 mg tablet 10 mg PO TID PRN (Reason: muscle spasm) Qty: 30 RF: 0 naproxen 500 mg tablet 500 mg PO BID PRN (Reason: pain) Qty: 20 RF: 0 Discharge Orders: Transfer Out of Facility (Order); Ordered 12/25/20 Ordered By: Nicola Reyes Sign Out Sign Out Data: Patient Sign Out occurred on 12/25/20 at 06:25. Patient's care was discussed, and care was transferred from to Nicola Reyes MD. Coding Level of Care Code ED Manager Of Health for Chg Fwd Exam Comprehensive Documented by User: Nicola Reyes MD 12/25/20 07:52 HPI - General Adult General: Chief complaint: Shortness of Breath/Dyspnea Stated complaint: HYPERGLYCEMIA Time Seen by Provider: 12/24/20 17:29 PFSH ED PFSH: Medical History (Updated 12/23/20 @ 00:01 by ) Agoraphobia with panic disorder Major depressive disorder, recurrent, moderate Nicotine dependence, cigarettes, with other nicotine-induced disorders Social History Smoking and tobacco status: current every day smoker Course Vital Signs: Vital signs: Vital Signs Temperature 97.8 F 12/24/20 17:46 Pulse Rate 94 12/25/20 06:20 Respiratory Rate 20 H 12/25/20 06:20 Blood Pressure 127/69 12/25/20 06:20 Pulse Oximetry 95 12/25/20 06:20 MDM - General Adult 2 MDM Narrative: Medical decision making narrative: This patient was signed out to me by Dr. Ramirez, she is 60 years old and has metastatic cancer with mets to liver. Bilirubin is elevated. Patient is also hyperglycemic does not appear to be DKA. Improving with insulin. Overnight Dr. Ramirez discussed this with GI at [facility] and indicated due to elevated bilirubin level they would like her to be transferred. Discussed case with hospitalist at [facility], Dr. Blandon, who is willing to accept transfer. Patient is currently in stable condition awaiting transfer. Lab Data: Labs: Lab Results 12/24/20 12/24/20 12/24/20 18:43 18:43 18:43 WBC 7.2 10^3/uL 10^3/ uL (4.0-10.0) RBC 3.73 10^6/uL L 10 ^6/uL (4.1-5.3) Hgb 10.9 g/dL L g/dL (11.5-15.3) Hct 33.3 % L % (37.0-47.0) MCV 89.3 fl fl (81-99) MCH 29.2 pg pg (28.0-34.0) MCHC 32.7 g/dL g/dL (30.0-36.0) RDW 18.7 % H % (12.1-15.1) Plt Count 168 10^3/cmm 10^3 /cmm (130-400) MPV 11.3 fL H fL (7.4-10.4) Neut % (Auto) 89.9 % % Lymph % (Auto) 5.5 % % Archer % (Auto) 3.8 % % Eos % (Auto) 0.0 % % Baso % (Auto) 0.1 % % Neut # (Auto) 6.43 10^3/uL 10^3 /uL (1.8-7.7) Lymph # (Auto) 0.4 10^3/uL L 10^ 3/uL (0.8-4.8) Archer # (Auto) 0.3 10^3/uL 10^3/ uL (0.2-0.9) Eos # (Auto) 0.0 10^3/uL 10^3/ uL (0.0-0.8) Baso # (Auto) 0.0 10^3/uL 10^3/ uL (0.0-0.1) Nucleated RBC % (a uto) 1.3 % % Nucleated RBCs # 0.1 /100WBC /100W BC Specimen Type Sample Site ABG pH ABG pCO2 ABG pO2 ABG HCO3 ABG Base Excess Eliazar Test Hematocrit O2 Delivery Device FiO2 Specimen Drawn By Sodium 130 mmol/L L mmol /L (136-145) Potassium 5.4 mmol/L H mmol /L (3.5-5.1) Chloride 94 mmol/L L mmol/ L (98-107) Carbon Dioxide 18 mmol/L L mmol/ L (22-29) Anion Gap 23.4 H (5-19) BUN 37 mg/dL H mg/dL (8-23) Creatinine 0.7 mg/dL mg/dL (0.5-0.9) GFR Calculation 85.4 mL/min L mL/ min (90-130) Glucose 540 mg/dL H* mg/d L (65-115) POC Glucose Calculated Osmolal ity 303 mOsm/kg H mOs m/kg (285-295) Calcium 7.8 mg/dL L mg/dL (8.5-10.5) Total Bilirubin 7.6 mg/dL H* mg/d L (0.15-1.2) AST 156 U/L H U/L (0-32) ALT 123 U/L H U/L (0-33) Alkaline Phosphata se 522 IU/L H IU/L (35-105) Ammonia Total Protein 4.8 g/dL L g/dL (6.6-8.7) Albumin 2.1 g/dL L g/dL (3.5-5.2) Globulin 2.7 g/dL g/dL (1.3-4.6) Lipase 121 U/L H U/L (13-60) Urine Color Urine Appearance Urine pH Ur Specific Gravit y Urine Protein Urine Glucose (UA) Urine Ketones Urine Blood Urine Nitrate Urine Bilirubin Urine Urobilinogen Ur Leukocyte Susi ase Urine RBC Urine WBC Ur Squamous Epith Cells Amorphous Sediment Urine Bacteria Urine Mucus Serum Ketones Negative (Negative) 12/24/20 12/24/20 12/24/20 18:43 20:45 22:01 WBC RBC Hgb Hct MCV MCH MCHC RDW Plt Count MPV Neut % (Auto) Lymph % (Auto) Archer % (Auto) Eos % (Auto) Baso % (Auto) Neut # (Auto) Lymph # (Auto) Archer # (Auto) Eos # (Auto) Baso # (Auto) Nucleated RBC % (a uto) Nucleated RBCs # Specimen Type Art Sample Site Lrad ABG pH 7.34 L (7.35-7.45) ABG pCO2 31.2 mmHg L mmHg (35-45) ABG pO2 68.5 mmHg L mmHg (80.0-100.0) ABG HCO3 16.8 mmol/L L mmo l/L (22-26) ABG Base Excess -7.9 mmol/L L mmo l/L (-2.0-2.0) Eliazar Test Pos Hematocrit 34.4 % L % (37-47) O2 Delivery Device Ra FiO2 21.0 % % Specimen Drawn By [place]pe Sodium Potassium Chloride Carbon Dioxide Anion Gap BUN Creatinine GFR Calculation Glucose POC Glucose 487 mg/dL H mg/dL (70-110) Calculated Osmolal ity Calcium Total Bilirubin AST ALT Alkaline Phosphata se Ammonia 43 umol/L umol/L (11-51) Total Protein Albumin Globulin Lipase Urine Color Urine Appearance Urine pH Ur Specific Gravit y Urine Protein Urine Glucose (UA) Urine Ketones Urine Blood Urine Nitrate Urine Bilirubin Urine Urobilinogen Ur Leukocyte Susi ase Urine RBC Urine WBC Ur Squamous Epith Cells Amorphous Sediment Urine Bacteria Urine Mucus Serum Ketones 12/25/20 12/25/20 12/25/20 00:49 03:17 04:49 WBC RBC Hgb Hct MCV MCH MCHC RDW Plt Count MPV Neut % (Auto) Lymph % (Auto) Archer % (Auto) Eos % (Auto) Baso % (Auto) Neut # (Auto) Lymph # (Auto) Archer # (Auto) Eos # (Auto) Baso # (Auto) Nucleated RBC % (a uto) Nucleated RBCs # Specimen Type Sample Site ABG pH ABG pCO2 ABG pO2 ABG HCO3 ABG Base Excess Eliazar Test Hematocrit O2 Delivery Device FiO2 Specimen Drawn By Sodium Potassium Chloride Carbon Dioxide Anion Gap BUN Creatinine GFR Calculation Glucose POC Glucose 512 mg/dL H* mg/d L 462 mg/dL H mg/dL 415 mg/dL H mg/dL (70-110) (70-110) (70-110) Calculated Osmolal ity Calcium Total Bilirubin AST ALT Alkaline Phosphata se Ammonia Total Protein Albumin Globulin Lipase Urine Color Urine Appearance Urine pH Ur Specific Gravit y Urine Protein Urine Glucose (UA) Urine Ketones Urine Blood Urine Nitrate Urine Bilirubin Urine Urobilinogen Ur Leukocyte Susi ase Urine RBC Urine WBC Ur Squamous Epith Cells Amorphous Sediment Urine Bacteria Urine Mucus Serum Ketones 12/25/20 12/25/20 05:50 06:40 WBC RBC Hgb Hct MCV MCH MCHC RDW Plt Count MPV Neut % (Auto) Lymph % (Auto) Archer % (Auto) Eos % (Auto) Baso % (Auto) Neut # (Auto) Lymph # (Auto) Archer # (Auto) Eos # (Auto) Baso # (Auto) Nucleated RBC % (a uto) Nucleated RBCs # Specimen Type Sample Site ABG pH ABG pCO2 ABG pO2 ABG HCO3 ABG Base Excess Eliazar Test Hematocrit O2 Delivery Device FiO2 Specimen Drawn By Sodium Potassium Chloride Carbon Dioxide Anion Gap BUN Creatinine GFR Calculation Glucose POC Glucose 386 mg/dL H mg/dL (70-110) Calculated Osmolal ity Calcium Total Bilirubin AST ALT Alkaline Phosphata se Ammonia Total Protein Albumin Globulin Lipase Urine Color Dark yellow (Yellow) Urine Appearance Cloudy (CLEAR) Urine pH 5 (5-7) Ur Specific Gravit y 1.020 (1.005-1.030) Urine Protein 1+ H (Negative) Urine Glucose (UA) 2+ H (Normal) Urine Ketones Negative (Negative) Urine Blood 2+ H (Negative) Urine Nitrate Negative (Negative) Urine Bilirubin 2+ H (Negative) Urine Urobilinogen 4 mg/dL H mg/dL (Negative) Ur Leukocyte Susi ase Trace H (Negative) Urine RBC 5-10 /hpf H /hpf (0-2) Urine WBC 15-25 /hpf H /hpf (0-5) Ur Squamous Epith Cells 5-10 /hpf H /hpf (0-5) Amorphous Sediment Not Reportable Urine Bacteria 4+ /hpf H /hpf (NONE) Urine Mucus 1+ /hpf /hpf Serum Ketones EKG Data^: EKG 1: Computer generated interpretation: Chest X-Ray 12/24/20 17:40 IMPRESSION: No evidence for acute cardiopulmonary disease. Radiation Dose CTDIVOL = (mGy): DLP = (mGy-cm) Gallbladder Ultrasound 12/24/20 20:39
--- NOTE | 2020-12-24 17:40 | XRR_ITS ---
PROCEDURE INFORMATION: Exam: XR Chest Exam date and time: 12/24/2020 5:40 PM Age: 60 years old Clinical indication: Shortness of breath; TECHNIQUE: Imaging protocol: XR of the chest. Views: 1 view. COMPARISON: CT abdomen pelvis w con* [id number] 12/14/2020 11:36 PM FINDINGS: Lungs: Unremarkable. No consolidation. Pleural spaces: Unremarkable. No pleural effusion. No pneumothorax. Heart/Mediastinum: Unremarkable. No cardiomegaly. Vasculature: There is calcified plaque in the aortic arch. Bones/joints: Unremarkable. XR/XR chest 1V portable [id number] IMPRESSION: No evidence for acute cardiopulmonary disease. Radiation Dose CTDIVOL = (mGy): DLP = (mGy-cm)
[2020-12-24 17:46] VITALS: BP 129/64; PULSE 111; RESP 20; TEMP 36.6; O2SAT 93; BMI 31.6
[2020-12-24 17:50] VITALS: BP 129/64; PULSE 110; RESP 20; O2SAT 93
[2020-12-24 18:46] LABS: Basophils % 0.1 %; Hematocrit 33.3 % (37.0-47.0); Hemoglobin 10.9 g/dL (11.5-15.3); Lymphocytes # 0.4 10^3/uL (0.8-4.8); Lymphocytes % 5.5 %; Mean Corpuscular HGB Conc 32.7 g/dL (30.0-36.0); Mean Corpuscular Hemoglobin 29.2 pg (28.0-34.0); Mean Corpuscular Volume 89.3 fl (81-99); Mean Platelet Volume 11.3 fL (7.4-10.4); Monocytes # 0.3 10^3/uL (0.2-0.9); Monocytes % 3.8 %; Neutrophils # 6.43 10^3/uL (1.8-7.7); Neutrophils % 89.9 %; Nucleated Red Blood Cells # 0.1 /100WBC; Nucleated Red Blood Cells % 1.3 %; Platelet Count 168 10^3/cmm (130-400); Red Blood Count 3.73 10^6/uL (4.1-5.3); Red Cell Distribution Width 18.7 % (12.1-15.1); White Blood Count 7.2 10^3/uL (4.0-10.0)
[2020-12-24] MEDS: sodium chloride 0.9% 1,000 ML 999 ML IV ×2 (19:02→22:03)
[2020-12-24 19:03] LABS: Ketone (Acetest) Serum Negative (Negative)
[2020-12-24 19:07] LABS: Alanine Aminotransferase 123 U/L (0-33); Albumin Level 2.1 g/dL (3.5-5.2); Alkaline Phosphatase 522 IU/L (35-105); Aspartate Amino Transferase 156 U/L (0-32); Blood Urea Nitrogen 37 mg/dL (8-23); Calcium 7.8 mg/dL (8.5-10.5); Carbon Dioxide 18 mmol/L (22-29); Chloride 94 mmol/L (98-107); Globulin 2.7 g/dL (1.3-4.6); Glomerular Filtration Rate 85.4 mL/min (90-130); Lipase 121 U/L (13-60); Osmolality Calculated 303 mOsm/kg (285-295); Sodium 130 mmol/L (136-145); Total Protein 4.8 g/dL (6.6-8.7)
[2020-12-24 19:08] LABS: Ammonia 43 umol/L (11-51)
[2020-12-24 19:13] LABS: Anion Gap 23.4 (5-19); Glucose 540 mg/dL (65-115); Potassium 5.4 mmol/L (3.5-5.1); Total Bilirubin 7.6 mg/dL (0.15-1.2)
[2020-12-24 19:16] VITALS: RESP 22; O2SAT 93
[2020-12-24] MEDS: morphine 4 mg/mL SDV 1 mL IVP (19:16)
[2020-12-24] MEDS: insulin regular-human 100 units/1 mL 10 UNIT IVP (20:03)
--- NOTE | 2020-12-24 20:39 | USR_ITS ---
PROCEDURE INFORMATION: Exam: US Abdomen, Limited; Right Upper Quadrant Exam date and time: 12/24/2020 8:39 PM Age: 60 years old Clinical indication: Abdominal pain; Acute; Additional info: Hyperbilirubinemia. TECHNIQUE: Imaging protocol: US abdomen. Real time ultrasound with image documentation. Limited exam focused on the right upper quadrant. COMPARISON: US gall bladder [id number] 12/14/2020 11:03 PM FINDINGS: Liver: Liver is enlarged measuring 23.3 cm. Liver is inhomogeneous in echogenicity. Gallbladder: Gallbladder is contracted and contains stones. Gallbladder wall is thickened measuring 6.6 mm. Negative sonographic Hutchison's sign. Common bile duct: Common bile duct is normal in caliber measuring 6 mm. Pancreas: Visualized pancreas is unremarkable. Right kidney: Right kidney is unremarkable with no evidence for hydronephrosis, calculi, or mass. Right kidney measures 12.0 x 4.8 x 5.6 cm. US/US gall bladder [id number] IMPRESSION: 1. Hepatomegaly. Liver is inhomogeneous. 2. Gallbladder is contracted and contains stones. There is gallbladder wall thickening measuring 6.6 mm. Findings raise concern for cholecystitis. Radiation Dose CTDIVOL = (mGy): DLP = (mGy-cm)
[2020-12-24 21:00] LABS: ABG PCO2 31.2 mmHg (35-45); ABG PH Result 7.34 (7.35-7.45); PO2 ABG 68.5 mmHg (80.0-100.0)
[2020-12-24 21:01] LABS: Arterial Blood Gas Hematocrit 34.4 % (37-47); Base Excess ABG -7.9 mmol/L (-2.0-2.0); Blood Gas Allen Test POS; Blood Gas Sample Site LRAD; Blood Gas Sample Type ART; HCO3 ABG 16.8 mmol/L (22-26); Oxygen Device RA
[2020-12-24 21:19] VITALS: RESP 22; O2SAT 97
[2020-12-24] MEDS: HYDROmorphone 1 mg/mL INJ 1 mL IVP ×2 (21:19→23:51)
[2020-12-24 22:03] LABS: Glucose Point of Care 487 mg/dL (70-110)
[2020-12-24] MEDS: sodium chloride 0.9% 1,000 ML 100 ML IV (23:27)
[2020-12-24] MEDS: piperacillin-tazobactam 3.375 GM in sodium chloride 0.9% (plus) 50 ML IV ×2 (23:50)
[2020-12-24 23:51] VITALS: RESP 20
[2020-12-25 00:54] LABS: Glucose Point of Care 512 mg/dL (70-110)
[2020-12-25] MEDS: insulin regular-human 100 units/1 mL 10 UNIT IVP ×2 (01:31→04:54)
[2020-12-25 03:20] LABS: Glucose Point of Care 462 mg/dL (70-110)
[2020-12-25 04:52] LABS: Glucose Point of Care 415 mg/dL (70-110)
[2020-12-25 05:53] VITALS: RESP 18
[2020-12-25 05:53] LABS: Glucose Point of Care 386 mg/dL (70-110)
[2020-12-25] MEDS: HYDROmorphone 1 mg/mL INJ 1 mL IVP (05:53)
[2020-12-25 06:20] VITALS: BP 127/69; PULSE 94; RESP 20; O2SAT 95
[2020-12-25 07:08] LABS: Add Urine Microscopic? YES; Bilirubin Urine 2+ (Negative); Blood Urine 2+ (Negative); Glucose Urine UA 2+ (Normal); Ketones Urine Negative (Negative); Leukocyte Esterase Urine Trace (Negative); Nitrate Urine Negative (Negative); Protein Urine 1+ (Negative); Urine Appearance Cloudy (CLEAR); Urine Color Dark Yellow (Yellow); Urobilinogen Urine 4 mg/dL (Negative); pH Urine 5 (5-7)
[2020-12-25 07:24] LABS: WBC Urine 15-25 /hpf (0-5)
[2020-12-25 07:25] LABS: Bacteria Urine 4+ /hpf; Mucus Urine 1+ /hpf
[2020-12-25 07:26] LABS: Add Urine Culture? Yes
[2020-12-25 07:47] VITALS: BP 105/67; PULSE 103; RESP 16; O2SAT 94
[2020-12-25 07:59] LABS: Glucose Point of Care 301 mg/dL (70-110)
[2020-12-25] MEDS: piperacillin-tazobactam 3.375 GM in sodium chloride 0.9% (plus) 50 ML IV (08:22)
[2020-12-25] MEDS: sodium chloride 0.9% 1,000 ML 100 ML IV (08:22)
[2020-12-25 08:25] LABS: Alanine Aminotransferase 311 U/L (0-33); Albumin Level 1.9 g/dL (3.5-5.2); Alkaline Phosphatase 515 IU/L (35-105); Anion Gap 17.3 (5-19); Aspartate Amino Transferase 506 U/L (0-32); Blood Urea Nitrogen 47 mg/dL (8-23); Calcium 7.4 mg/dL (8.5-10.5); Carbon Dioxide 21 mmol/L (22-29); Chloride 101 mmol/L (98-107); Globulin 3.1 g/dL (1.3-4.6); Glomerular Filtration Rate 63.9 mL/min (90-130); Glucose 289 mg/dL (65-115); Osmolality Calculated 303 mOsm/kg (285-295); Potassium 4.3 mmol/L (3.5-5.1); Sodium 135 mmol/L (136-145); Total Bilirubin 6.7 mg/dL (0.15-1.2)
[2020-12-25 09:30] VITALS: BP 128/65; PULSE 94; RESP 16; O2SAT 93
--- NOTE | 2020-12-25 09:32 | PC.NURSE ---
PT IS RESTING QUIETLY IN BED SUPINE WITH EYES CLOSED. PT IS IN NAD. PT HAS GOOD CHEST RISE AND FALL.
--- NOTE | 2020-12-25 11:38 | PC.NURSE ---
while at doorway pt is in nad. pt is resting in bed.
[2020-12-25 13:07] VITALS: BP 141/70; PULSE 100; RESP 24; O2SAT 97
[2020-12-25 15:13] VITALS: BP 129/61; PULSE 99; RESP 17; O2SAT 95
--- NOTE | 2020-12-29 11:22 | DCPLANNER ---
Patient had a follow up appointment scheduled for 12.13.[address] Arteaga - patient did attend appointment.
== END 2020-12-25 16:03 | disposition short-term general hospital (02) ==
PROVIDERS: Emergency Medicine; Nurse Practitioner Family; Emergency Provider Emergency Medicine; PCP Nurse Practitioner Family
DX: R73.9 Hyperglycemia, unspecified (principal); F17.210 Nicotine dependence, cigarettes, uncomplicated; Z85.3 Personal history of malignant neoplasm of breast; Z85.05 Personal history of malignant neoplasm of liver
CPT/HCPCS: 36416; 36600; 71045; 76705; 80053; 81001; 82009; 82140; 82803; 82962; 83690; 85025; 87077; 87086; 87186; 93976; 96365; 96366; 96372; 96375; 96376; 99285; J1170; J1815; J2270; J2543; J7030